=== PATIENT | female | born 1950 | race Caucasian/White ===

== ENCOUNTER → 2018-05-11 | Outpatient (CLI) | payer BC ==
[~2018-05-11] MED LIST: CATHETER FLUSH 10 ML SYR IV PRN; HOLD METFORMIN - RECEIVED CONTRAST 20 ML VIAL IV SCH; IOHEXOL 350 MG/ML 150 ML (OMNIPAQUE 350) VIAL IV ONE; NS 50 ML (IVPB) BAG IV ONE
--- NOTE | 2018-05-11 13:53 | Diagnostic Imaging Report ---
PROCEDURE: CT angiography of the chest with contrast. TECHNIQUE: Multiple contiguous axial images were obtained through the chest after uneventful bolus administration of intravenous contrast. 2D reconstructed CTA MIP acquisitions were also performed. INDICATION: Shortness of air. Chest pain. COMPARISON: None. FINDINGS: There is no evidence of acute pulmonary embolus to the lobar branches of the pulmonary arteries. Evaluation of the segmental and subsegmental branches is suboptimal secondary to motion artifact as well as poor opacification by the contrast bolus. The thoracic aorta shows mild scattered atherosclerotic disease but is otherwise normal in course and caliber. The heart size is within normal limits. There is no large pericardial effusion. No pathologically enlarged or morphologically abnormal adenopathy is seen within the mediastinum, jose, or axilla. A heterogeneous nodule is identified involving the posterior margin of the left thyroid lobe and measures 1.5 x 1.7 cm. Evaluation of the lung comer demonstrates background moderate emphysematous disease with hyperinflation, consistent with underlying air trapping. There is some scarring and atelectasis; however, there is no focal consolidation, large effusion, or pneumothorax. There is mild image degradation of the pulmonary parenchyma secondary to motion artifact but no suspicious pulmonary nodules or masses are identified. The bony structures show no acute abnormality. No lytic or blastic osseous lesions are identified. The included portions of the upper abdomen show a gastric diverticulum superior to the left adrenal gland. IMPRESSION: 1. No evidence of acute pulmonary embolus to the lobar level of the pulmonary arteries. Again, evaluation beyond this is suboptimal secondary to motion artifact and poor opacification by the contrast bolus. 2. Background moderate emphysematous disease but no focal consolidation, large effusion, or pneumothorax. 3. Left adrenal nodule which could be further characterized with dedicated thyroid sonogram on a nonemergent basis. 4. Gastric diverticulum. Dictated by: Dictated on workstation # [id number]
== END ==
LOC: RAD FS 10:57
PROVIDERS: ATTEND Family Medicine
DX: J43.9 Emphysema, unspecified (principal); E27.8 Other specified disorders of adrenal gland; K31.4 Gastric diverticulum
CPT/HCPCS: 71275

== ENCOUNTER 2019-09-16 07:08 | Inpatient (IN) | payer BC, MEDICARE ==
[~2019-09-16] VITALS: Ht 162.6 cm; Wt 72.5 kg
[2019-09-16] VITALS (7 sets, daily range): BP systolic 142–167; BP diastolic 73–86
--- OUTSIDE RECORDS SUMMARY | 2019-09-16 07:15 | XMS REPORT ---
Author Author Bethany EAGLE Organization [facility] Address [address] [address] Care Team Providers Care Flatwork Tier Name Role Phone JIM EAGLE Unavailable PROBLEMS Type Condition ICD9-CM Code [id number] Code Onset Dates Condition S tatus SNOMED Code Problem Acute sinusitis 461.9 Feb, 0 1 6016780 Problem HTN (hypertension) 401.9 Sep, 0 23508026 Problem Hyperlipidemia 272.4 Sep, 0 55 900934 Problem COPD (chronic obstructive pulmonary disease) 496 Sep, 0 75156069 Problem Yeast infection of the skin B37.2 Apr, 0 511140070 Problem Acute bronchitis 466.0 Feb, 0 34565332 Problem Acute bronchitis J20.9 Feb, 0 68167937 Problem Yeast infection of the vagina 112.1 Apr, 15 0 76219885 Problem Yeast infection of the vagina B37.3 Apr, 15 0 40885385 Problem Vertigo R42 Jul, 0 3026172 01 Problem COPD (chronic obstructive pulmonary disease) J44.9 Sep, 0 71718916 Problem HTN (hypertension) I10 Sep, 0 99046774 Problem Simple chronic bronchitis J41.0 Acti ve 02007151 Problem Hyperlipidemia E78.5 Sep, 0 55 070593 Problem Yeast infection of the skin 112.3 Apr, 0 412172714 Problem Hypertension I10 Active 2483255 3 Problem Acute sinusitis J01.90 Feb, 0 1 4060570 Problem Vertigo 780.4 Jul, 0 3145911 01 Problem Tobacco use 305.1 Jul, 0 97322 3000 Problem Tobacco use Z72.0 Jul, 0 29727 3000 Problem Cigarette nicotine dependence, uncomplicated 305.1 Jul, 0 250493506 Problem Cigarette nicotine dependence, uncomplicated F17.2 10 Jul, 0 682118986 Problem Tension-type headache, not intractable, unspecified chronicity pattern G44.209 Active 688260918 ALLERGIES No Known Allergies ENCOUNTERS Encounter Location Date Diagnosis [facility] [address] [place] [address] 08 Sep Simple chronic bronchitis J41.0 ; Hypertension I10 and Tension-type headache, not intractable, unspecified chronicity pattern G44.209 [facility] [address] [place] [address] Sep, Hypertension I10 [facility] [address] [place] [phone] Sep Hypertension I10 [facility] [address] [place] [address], [place] [address] Aug [facility] [address] [place] [address], [place] [address] Aug [facility] [address] [place] [phone] Jul [facility] [address] [place] [address] June, Screening mammogram, encounter for Z12.3 [address] [place] [address] [place] [address], [place] [address] June [facility] [address] [place] [address] Apr SOB (shortness of breath) on exertion R06.02 ; Simple chronic bronchitis J41.0 ; Hypertension I10 and Tension-type headache, not intractable, unspecified chronicity pattern G44.209 [facility] [address] [place] [address] Apr, Hypertension I10 [facility] [address] [place] [phone] Apr Hypertension I10 [facility] [address] [place] [phone] Mar [facility] [address] [place] [phone] Feb [facility] [address] [place] [phone] Feb [facility] [address] [facility] [id number] [place] [address] Jan, [facility] [address] [facility] [id number] [address] [place] [phone] Jan, [facility] [address] [facility] [id number] [address] [place] [phone] Jul, IMMUNIZATIONS No Known Immunizations SOCIAL HISTORY Never Assessed REASON FOR VISIT RAVINDRA murphy RN PLAN OF CARE Activity Details Follow Up prn Reason: VITAL SIGNS Height 64 in 2018-05-11 Weight 162 lbs 2018-05-11 Temperature 97.7 degrees Fahrenheit 2018-05-11 Heart Rate 86 bpm 2018-05-11 Respiratory Rate 16 2018-05-11 BMI 27.8 kg/m2 2018-05-11 Blood pressure systolic 134 mmHg 2018-05-11 Blood pressure diastolic 78 mmHg 2018-05-11 MEDICATIONS Medication Instructions Dosage Frequency Start Date End Date Duration S tatus Albuterol Sulfate HFA (5 MG/ML) 0.5% Inhalation every 6 hrs 2 pu ffs as needed 6h 30 days Active Lorazepam 0.5 MG Orally BID 1 tablet as needed 12h Active Pravastatin Sodium 20 MG Orally Once a day 1 tablet 24h 30 day(s) Active Spiriva Respimat 1.25 mcg/act Inhalation Once a day 2 puffs 24h 30 days Active Albuterol Sulfate (2.5 MG/3ML) 0.083% US E ONE VIAL IN NEBULIZER EVERY 4 HOURS NEEDED FOR WHEEZING 9 Acti ve Losartan Potassium-HCTZ 100-12.5 MG Orally Once a day 1 tablet 24h 30 day(s) Active RESULTS Name Result Date Reference Range CT Scan : Angio Chest w/ Contrast PROCEDURES No Known procedures INSTRUCTIONS MEDICATIONS ADMINISTERED No Known Medications MEDICAL (GENERAL) HISTORY Type Description Date Medical History hypertension Medical History hyperlipidemia
--- OUTSIDE RECORDS SUMMARY | 2019-09-16 07:15 | XMS REPORT ---
Author Author Bethany EAGLE Organization [facility] Address [address] [address] Care Team Providers Care Hadoop Administrator Name Role Phone JIM EAGLE Unavailable PROBLEMS Type Condition ICD9-CM Code [id number] Code Onset Dates Condition S tatus SNOMED Code Problem Acute sinusitis 461.9 Feb, 0 1 0987823 Problem HTN (hypertension) 401.9 Sep, 0 49409305 Problem Hyperlipidemia 272.4 Sep, 0 55 025533 Problem COPD (chronic obstructive pulmonary disease) 496 Sep, 0 67915970 Problem Yeast infection of the skin B37.2 Apr, 0 827324992 Problem Acute bronchitis 466.0 Feb, 0 60930400 Problem Acute bronchitis J20.9 Feb, 0 95215638 Problem Yeast infection of the vagina 112.1 Apr, 15 0 57695312 Problem Yeast infection of the vagina B37.3 Apr, 15 0 07775554 Problem Vertigo R42 Jul, 0 4827709 01 Problem COPD (chronic obstructive pulmonary disease) J44.9 Sep, 0 02666966 Problem HTN (hypertension) I10 Sep, 0 08364871 Problem Simple chronic bronchitis J41.0 Acti ve 09217664 Problem Hyperlipidemia E78.5 Sep, 0 55 677930 Problem Yeast infection of the skin 112.3 Apr, 0 341508702 Problem Hypertension I10 Active 6973915 3 Problem Acute sinusitis J01.90 Feb, 0 1 6866685 Problem Vertigo 780.4 Jul, 0 7219663 01 Problem Tobacco use 305.1 Jul, 0 72007 3000 Problem Tobacco use Z72.0 Jul, 0 20956 3000 Problem Cigarette nicotine dependence, uncomplicated 305.1 Jul, 0 559782663 Problem Cigarette nicotine dependence, uncomplicated F17.2 10 Jul, 0 457768641 Problem Tension-type headache, not intractable, unspecified chronicity pattern G44.209 Active 645133112 ALLERGIES No Information ENCOUNTERS Encounter Location Date Diagnosis [facility] [address] [place] [address] Apr SOB (shortness of breath) on exertion R06.02 ; Simple chronic bronchitis J41.0 ; Hypertension I10 and Tension-type headache, not intractable, unspecified chronicity pattern G44.[address] [address] Apr, Hypertension I10 [place] [address] [place] [address] Apr Hypertension I10 [place] [address] [place] [address] Mar [place] [address] [place] [phone] Feb [place] [address] [place] [address] Feb [facility] [address] [facility] [id number] [address] [place] [address] Jan, [facility] [address] [facility] [id number] [address] [place] [address] Jan, [facility] [address] [facility] [id number] [address] [place] [phone] 11 Jul, 2016 IMMUNIZATIONS No Known Immunizations SOCIAL HISTORY Never Assessed REASON FOR VISIT Lab orders PLAN OF CARE VITAL SIGNS MEDICATIONS Medication Instructions Dosage Frequency Start Date End Date Duration S tatus Spiriva Respimat 1.25 mcg/act Inhalation Once a day 2 puffs 24h 30 days Unknown Albuterol Sulfate HFA (5 MG/ML) 0.5% Inhalation every 6 hrs 2 pu ffs as needed 6h 30 days Unknown Albuterol Sulfate (2.5 MG/3ML) 0.083% US E ONE VIAL IN NEBULIZER EVERY 4 HOURS NEEDED FOR WHEEZING 9 Unkn own RESULTS No Results PROCEDURES No Known procedures INSTRUCTIONS MEDICATIONS ADMINISTERED No Known Medications MEDICAL (GENERAL) HISTORY Type Description Date Medical History hypertension Medical History hyperlipidemia
--- OUTSIDE RECORDS SUMMARY | 2019-09-16 07:15 | XMS REPORT | Continuity of Care Document ---
Demographics x Preferred Language Unknown Marital Status Unknown Presybeterian Affiliation Unknown Race Unknown Ethnic Group Unknown Author Organization Unknown Address Unknown Phone Unavailable Allergies Active Description Code Type Severity Reaction Onset Reported/Identified Relationship to Patient Clinical Status Yes No Allergy Information Available [id number] Drug Allergy Unknown N/A 019 Medications There is no data. Problems Date Dx Coded Attending Type Code Diagnosis Diagnosed By 05/14/2018 SHAGUFTA WOLF, JIM Bañuelos Ot E27.8 OTHER SPECIFIED DISORDERS OF ADRENAL GLA 05/14/2018 JIM EAGLE MD Ot J43.9 EMPHYSEMA, UNSPECIFIED 05/14/2018 JIM EAGLE MD Ot K31.4 GASTRIC DIVERTICULUM 06/09/2018 JIM EAGLE MD Ot E27.8 OTHER SPECIFIED DISORDERS OF ADRENAL GLA 06/09/2018 JIM EAGLE MD Ot J43.9 EMPHYSEMA, UNSPECIFIED 06/09/2018 JIM EAGLE MD Ot K31.4 GASTRIC DIVERTICULUM Procedures There is no data. Results Test Result Range CBC w/MANUAL DIFF - 05/04/18 08:24 WHITE BLOOD CELL COUNT 6.2 Thousand/uL 3 .8-10.8 RED BLOOD CELL COUNT 4.72 Million/uL 3.8 0-5.10 HEMOGLOBIN 14.1 g/dL 11.7-15.5 HEMATOCRIT 41.2 % 35.0-45.0 MCV 87.3 fL 80.0-100.0 MCH 29.9 pg 27.0-33.0 MCHC 34.2 g/dL 32.0-36.0 RDW 12.8 % 11.0-15.0 PLATELET COUNT TNP Thousand/uL NRG ABSOLUTE NEUTROPHILS 3478 cells/uL 1500- 7800 ABSOLUTE MONOCYTES 229 cells/uL 200-950 ABSOLUTE EOSINOPHILS 291 cells/uL 15-500 ABSOLUTE BASOPHILS 56 cells/uL 0-200 NEUTROPHILS 56.1 % NRG LYMPHOCYTES 34.6 % NRG MONOCYTES 3.7 % NRG EOSINOPHILS 4.7 % NRG BASOPHILS 0.9 % NRG ABSOLUTE LYMPHOCYTES 2145 cells/uL 850-3 900 TSH w/ FREE T4 - 03/22/19 07:34 TSH 1.78 mIU/L 0.40-4.50 T4, FREE 1.1 ng/dL 0.8-1.8 LIPID PANEL - 03/22/19 07:34 CHOLESTEROL, TOTAL 220 mg/dL <200 HDL CHOLESTEROL 77 mg/dL >50 TRIGLYCERIDES 103 mg/dL <150 LDL-CHOLESTEROL 122 mg/dL (calc) NRG CHOL/HDLC RATIO 2.9 (calc) <5.0 NON HDL CHOLESTEROL 143 mg/dL (calc) <13 0 CMP - 03/22/19 07:34 GLUCOSE 93 mg/dL 65-99 UREA NITROGEN (BUN) 22 mg/dL 7-25 CREATININE 0.83 mg/dL 0.50-0.99 eGFR NON-AFR. SAMOAN 73 mL/min/1.73m2 > OR = 60 eGFR 85 mL/min/1.73m2 > OR = 60 BUN/CREATININE RATIO NOT APPLICABLE (calc) 6-22 SODIUM 140 mmol/L 135-146 POTASSIUM 4.0 mmol/L 3.5-5.3 CHLORIDE 103 mmol/L 98-110 CARBON DIOXIDE 28 mmol/L 20-32 CALCIUM 9.3 mg/dL 8.6-10.4 PROTEIN, TOTAL 7.1 g/dL 6.1-8.1 ALBUMIN 4.5 g/dL 3.6-5.1 GLOBULIN 2.6 g/dL (calc) 1.9-3.7 ALBUMIN/GLOBULIN RATIO 1.7 (calc) 1.0-2. 5 BILIRUBIN, TOTAL 0.4 mg/dL 0.2-1.2 ALKALINE PHOSPHATASE 79 U/L 33-130 AST 18 U/L 10-35 ALT 22 U/L 6-29 CBC w/MANUAL DIFF - 03/22/19 07:34 WHITE BLOOD CELL COUNT 5.2 Thousand/uL 3 .8-10.8 RED BLOOD CELL COUNT 4.62 Million/uL 3.8 0-5.10 HEMOGLOBIN 13.6 g/dL 11.7-15.5 HEMATOCRIT 41.1 % 35.0-45.0 MCV 89.0 fL 80.0-100.0 MCH 29.4 pg 27.0-33.0 MCHC 33.1 g/dL 32.0-36.0 RDW 13.0 % 11.0-15.0 PLATELET COUNT TNP Thousand/uL NRG ABSOLUTE NEUTROPHILS 2725 cells/uL 1500- 7800 ABSOLUTE MONOCYTES 406 cells/uL 200-950 ABSOLUTE EOSINOPHILS 104 cells/uL 15-500 ABSOLUTE BASOPHILS 0 cells/uL 0-200 NEUTROPHILS 52.4 % NRG LYMPHOCYTES 35.9 % NRG MONOCYTES 7.8 % NRG EOSINOPHILS 2.0 % NRG BASOPHILS 0 % NRG ABSOLUTE BAND NEUTROPHILS 99 cells/uL 0- 750 ABSOLUTE LYMPHOCYTES 1867 cells/uL 850-3 900 BAND NEUTROPHILS 1.9 % NRG PLATELET ESTIMATION ADEQUATE CBC MORPHOLOGY NORMAL COMMENT(S) NRG Encounters ACCT No. Visit Date/Time Discharge Status Pt. Type Provider Facility Loc./Unit Complaint [id number] 03/22/2019 07:30:00 03/22/2019 23:59: 59 CLS Outpatient [facility] [id number] 03/22/2019 07:30:00 Document Registration [id number] 05/04/2018 09:00:00 Document Registration [id number] 05/11/2018 10:57:00 019 23:59:59 CLS Outpatient SHAGUFTA WOLF, JIM Castillo [facility] RAD FS SOB ON EXERTION
[2019-09-16 07:51] LABS: HEMATOCRIT 39 % (35-52); HEMOGLOBIN 13.2 G/DL (11.5-16.0); MEAN CORPUSCULAR HEMOGLOBIN 30 PG (25-34); MEAN CORPUSCULAR VOLUME 86 FL (80-99); WHITE BLOOD COUNT 10.1 10^3/uL (4.3-11.0)
[2019-09-16 07:52] LABS: BASOPHILS % (AUTO) 0 % (0-10); EOSINOPHILS # (AUTO) 0.1 10^3/uL (0.0-0.3); EOSINOPHILS % (AUTO) 1 % (0-10); LYMPHOCYTES # (AUTO) 1.4 X 10^3 (1.0-4.0); LYMPHOCYTES % (AUTO) 14 % (12-44); MEAN CORPUSCULAR HGB CONC 34 G/DL (32-36); MEAN PLATELET VOLUME 10.8 FL (7.4-10.4); MONOCYTES # (AUTO) 0.4 X 10^3 (0.0-1.0); MONOCYTES % (AUTO) 4 % (0-12); NEUTROPHILS # (AUTO) 8.1 X 10^3 (1.8-7.8); NEUTROPHILS % (AUTO) 70 % (42-75); PLATELET COUNT 308 10^3/uL (130-400); RED CELL DISTRIBUTION WIDTH 12.6 % (10.0-14.5)
--- NOTE | 2019-09-16 07:57 | ED Abdominal Pain ---
General Chief Complaint: Abdominal/GI Problems Stated Complaint: ABD/BACK PAIN Nursing Triage Note: Patient states she has not had a bowel movement since the beginning of the week, also states she has had a sinus infection that has progressed to a cough. She reports she has COPD and wears oxygen at home, mainly at night. She reports bilateral upper abdominal/lower rib cage and lower back pain. 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 pt presents complaining of upper abdominal pain radiating to the back that started last night she says she started with a URI / sinus congestion symptoms roughly a week ago it moved into her chest although she's had little in the way of coughing has had occasional green or yellow sputum she feels she has pneumonia she's not sure about fever she is afebrile here for us last night she developed this epigastric and midabdominal pain radiating through to the back she did have nausea and vomited 4 still has her gallbladder has been constipated she denies urinary symptoms CT scan shows negative chest no PE abdomen scan shows fluid-filled distended loops of small bowel concerning for small bowel obstruction no definite transition point seen This was discussed with the hospitalist in [place] covering for her physician's service Dr. Leung who agrees to accept the patient in transfer she has requested that we run a COVID-19 swab and start an NG tube Allergies and Home Medications Allergies Coded Allergies: No Known Drug Allergies (Unverified , 09/16/19) Patient Home Medication List Home Medication List Reviewed: Yes Review of Systems Review of Systems Constitutional: no symptoms reported EENTM: Nose Congestion Respiratory: Cough, Other (has COPD/asthma is on O2 no apparent increase in resp difficulty) Cardiovascular: Other (can't exclude lower chest pain) Gastrointestinal: Abdominal Pain, Constipated, Nausea, Vomiting Genitourinary: No Symptoms Reported Musculoskeletal: no symptoms reported Skin: no symptoms reported Psychiatric/Neurological: No Symptoms Reported Endocrine: No Symptoms Reported Hematologic/Lymphatic: No Symptoms Reported Past Csrldeg-Iqgptc-Lyoufy Hx Patient Social History Alcohol Use: Denies Use Recreational Drug Use: No Smoking Status: Former Smoker Type Used: Cigarettes Former Smoker, Quit: Feb 23, 2017 2nd Hand Smoke Exposure: No Recent Foreign Travel: No Contact w/Someone Who Travel: No Recent Infectious Disease Expo: No Recent Hopitalizations: No Physical Abuse: No Sexual Abuse: No Mistreated: No Fear: No Seasonal Allergies Seasonal Allergies: No Past Medical History Surgeries: No Respiratory: Yes COPD Cardiac: No Neurological: No Genitourinary: No Gastrointestinal: No Musculoskeletal: No Endocrine: No HEENT: No Cancer: No Psychosocial: No Integumentary: No Physical Exam Vital Signs Vital Signs - First Documented 09/16/19 07:22 Temp 36.9 Pulse 89 Resp 20 B/P (MAP) 152/107 (122) Pulse Ox 94 O2 Delivery Nasal Cannula O2 Flow Rate 3.00 Capillary Refill : Less Than 3 Seconds Height/Weight/BMI Height: '" Weight: lbs. oz. kg; 27.00 BMI Method: General Appearance: WD/WN, no apparent distress, other (pt does not appear to be indistress either from pain or from resp difficulty) Cardiovascular: regular rate, rhythm Gastrointestinal: normal bowel sounds, non tender, soft Extremities: normal range of motion, no pedal edema; No calf tenderness Back: normal inspection, no CVA tenderness Progress/Results/Core Measures Results/Orders Lab Results Laboratory Tests Test 09/16/19 07:15 09/16/19 07:35 Range/Units Urine Color YELLOW Urine Clarity CLEAR Urine pH 6.0 5-9 Urine Specific [place] 1.025 H 1.016-1.022 Urine Protein TRACE H NEGATIVE Urine Glucose (UA) NEGATIVE NEGATIVE Urine Ketones NEGATIVE NEGATIVE Urine Nitrite NEGATIVE NEGATIVE Urine Bilirubin NEGATIVE NEGATIVE Urine Urobilinogen 0.2 < = 1.0 MG/DL Urine Leukocyte Esterase NEGATIVE NEGATIVE Urine RBC (Auto) NEGATIVE NEGATIVE Urine RBC NONE /HPF Urine WBC NONE /HPF Urine Squamous Epithelial Cells 10-25 H /HPF Urine Crystals NONE /LPF Urine Bacteria FEW H /HPF Urine Casts PRESENT /LPF Urine Hyaline Casts 0-2 H /LPF Urine Mucus NEGATIVE /LPF Urine Culture Indicated NO White Blood Count 10.1 4.3-11.0 10^3/uL Red Blood Count 4.46 4.35-5.85 10^6/uL Hemoglobin 13.2 11.5-16.0 G/DL Hematocrit 39 35-52 % Mean Corpuscular Volume 86 80-99 FL Mean Corpuscular Hemoglobin 30 25-34 PG Mean Corpuscular Hemoglobin Concent 34 32-36 G/DL Red Cell Distribution Width 12.6 10.0-14.5 % Platelet Count 308 130-400 10^3/uL Mean Platelet Volume 10.8 H 7.4-10.4 FL Neutrophils (%) (Auto) 70 42-75 % Lymphocytes (%) (Auto) 14 12-44 % Monocytes (%) (Auto) 4 0-12 % Eosinophils (%) (Auto) 1 0-10 % Basophils (%) (Auto) 0 0-10 % Neutrophils # (Auto) 8.1 H 1.8-7.8 X 10^3 Lymphocytes # (Auto) 1.4 1.0-4.0 X 10^3 Monocytes # (Auto) 0.4 0.0-1.0 X 10^3 Eosinophils # (Auto) 0.1 0.0-0.3 10^3/uL Basophils # (Auto) 0.0 0.0-0.1 10^3/uL D-Dimer 1.38 H 0.00-0.49 UG/ML Sodium Level 130 L 135-145 MMOL/L Potassium Level 4.5 3.6-5.0 MMOL/L Chloride Level 92 L 98-107 MMOL/L Carbon Dioxide Level 26 21-32 MMOL/L Anion Gap 12 5-14 MMOL/L Blood Urea Nitrogen 15 7-18 MG/DL Creatinine 0.94 0.60-1.30 MG/DL Estimat Glomerular Filtration Rate 60 BUN/Creatinine Ratio 16 Glucose Level 143 H 70-105 MG/DL Calcium Level 10.4 H 8.5-10.1 MG/DL Corrected Calcium 10.2 H 8.5-10.1 MG/DL Total Bilirubin 0.2 0.1-1.0 MG/DL Aspartate Amino Transf (AST/SGOT) 18 5-34 U/L Alanine Aminotransferase (ALT/SGPT) 23 0-55 U/L Alkaline Phosphatase 97 40-136 U/L Troponin I < 0.30 <0.30 NG/ML Total Protein 7.7 6.4-8.2 GM/DL Albumin 4.2 3.2-4.5 GM/DL Lipase 29 8-78 U/L My Orders Orders - JOJO BECKHAM MD Ua Culture If Indicated (09/16/19 07:13) Chest 1 View Ap/Pa Only (09/16/19 07:30) Ekg Tracing (09/16/19 07:40) Cbc With Automated Diff (09/16/19 07:40) Comprehensive Metabolic Panel (09/16/19 07:40) Lipase (09/16/19 07:40) Troponin I Fs (09/16/19 07:40) Iv Heplock-Insert (Order) (09/16/19 07:40) Fentanyl Injection (Sublimaze Injection (09/16/19 08:00) Monitor-Rhythm Ecg Trace Only (09/16/19 07:49) Fibrin Degradation Products (09/16/19 07:50) Ct Madhavi Chest/Noang Abd-Pelv W (09/16/19 ) Iohexol Injection (Omnipaque 350 Mg/Ml 1 (09/16/19 09:15) Received Contrast (Hold Metformin- Contr (09/16/19 09:15) Sodium Chloride Flush (Catheter Flush Sy (09/16/19 09:15) Ns (Ivpb) (Sodium Chloride 0.9% Ivpb Bag (09/16/19 09:15) Fentanyl Injection (Sublimaze Injection (09/16/19 09:45) Medications Given in ED Current Medications Medications Dose Ordered Sig/Sharyn Route Start Time Stop Time Status Last Admin Dose Admin Fentanyl Citrate 50 mcg ONCE ONCE IVP 09/16/19 08:00 09/16/19 08:01 DC 09/16/19 07:53 50 MCG Fentanyl Citrate 50 mcg ONCE ONCE IVP 09/16/19 09:45 09/16/19 09:46 DC 09/16/19 09:41 50 MCG Iohexol 125 ml ONCE ONCE IV 09/16/19 09:15 09/16/19 09:16 DC 09/16/19 09:37 125 ML Sodium Chloride 10 ml NEEDED PRN IV 09/16/19 09:15 09/16/19 09:37 10 ML Sodium Chloride 100 ml ONCE ONCE IV 09/16/19 09:15 09/16/19 09:16 DC 09/16/19 09:37 100 ML Vital Signs/I&O 09/16/19 07:22 Temp 36.9 Pulse 89 Resp 20 B/P (MAP) 152/107 (122) Pulse Ox 94 O2 Delivery Nasal Cannula O2 Flow Rate 3.00 Blood Pressure Mean: 122 Progress Progress Note : Progress Note Chest x-ray has been read by radiology as normal All labs including troponin lipase CBC CMP and UA are normal except elevated d- dimer CT chest - neg CT scan shows negative chest no PE abdomen scan shows fluid-filled distended loops of small bowel concerning for small bowel obstruction no definite transition point seen This was discussed with the hospitalist in [place] covering for her physician's service Dr. Leung who agrees to accept the patient in transfer she has requested that we run a COVID-19 swab and start an NG tube Comment EKG shows a sinus rhythm at 79 relatively low voltage no acute ST changes Departure Communication (Admissions) Time/Spoke to Admitting Phy: 10:36 Impression Primary Impression: Small bowel obstruction Disposition: ADMITTED INPATIENT Condition: Stable Admissions Decision to Admit Reason: Admit from ER (General) Decision to Admit/Date: Sep 16, 2019 Time/Decision to Admit Time: 10:38 Transfer Transfer Reason: Exceeds level of care Time Spoke to Accepting Phy: 10:38 Transfer Progress Notes pt to have NG placed and COVID 19 swab taken Method of Transfer: EMS Departure-Patient Inst. Referrals: JIM EAGLE MD (PCP/Family) Primary Care Physician JOJO BECKHAM MD Sep 16, 2019 07:57
[2019-09-16] MEDS ORDERED: fentaNYL INJECTION 100 MCG/2 ML AMP IVP ONE ×4 (08:00→21:45)
--- NOTE | 2019-09-16 08:13 | Diagnostic Imaging Report ---
Indication: Lower respiratory infection Portable chest 7:43 AM Heart size and pulmonary vascularity are normal. Lungs are clear. There are no effusions or pneumothoraces. IMPRESSION: No acute abnormalities in the chest Dictated by: Dictated on workstation # [id number]
[2019-09-16 08:15] LABS: BACTERIA,URINE FEW /HPF; BILIRUBIN,URINE NEGATIVE (NEGATIVE); CLARITY,URINE CLEAR; COLOR,URINE YELLOW; GLUCOSE, URINE (UA) NEGATIVE (NEGATIVE); HYALINE CASTS, URINE 0-2 /LPF; KETONES,URINE NEGATIVE (NEGATIVE); LEUKOCYTE ESTERASE ,URINE NEGATIVE (NEGATIVE); NITRITE,URINE NEGATIVE (NEGATIVE); PROTEIN,URINE TRACE (NEGATIVE)
[2019-09-16 08:16] LABS: ALANINE AMINOTRANSFERASE 23 U/L (0-55); ALBUMIN 4.2 GM/DL (3.2-4.5); ALKALINE PHOSPHATASE 97 U/L (40-136); BILIRUBIN,TOTAL 0.2 MG/DL (0.1-1.0); BUN/CREATININE RATIO 16; CALCIUM 10.4 MG/DL (8.5-10.1); CARBON DIOXIDE 26 MMOL/L (21-32); CHLORIDE 92 MMOL/L (98-107); CREATININE SERUM 0.94 MG/DL (0.60-1.30); GFR ESTIMATED 60; GLUCOSE 143 MG/DL (70-105); LIPASE 29 U/L (8-78); POTASSIUM 4.5 MMOL/L (3.6-5.0); SODIUM 130 MMOL/L (135-145); TOTAL PROTEIN 7.7 GM/DL (6.4-8.2)
[2019-09-16] MEDS ORDERED: IOHEXOL 350 MG/ML 150 ML (OMNIPAQUE 350) VIAL IV ONE (09:15)
[2019-09-16] MEDS ORDERED: HOLD METFORMIN - RECEIVED CONTRAST 20 ML VIAL IV SCH (09:15)
[2019-09-16] MEDS ORDERED: NS 100 ML (IVPB) BAG IV ONE (09:15)
[2019-09-16] MEDS: CATHETER FLUSH 10 ML SYR IV PRN ×2 (09:37→13:43)
--- NOTE | 2019-09-16 10:05 | Diagnostic Imaging Report ---
CTA chest, abdomen and pelvis Thin axial sections through the chest, abdomen and pelvis are obtained following intravenous contrast bolus. Multiplanar MIP images were reconstructed and reviewed. All CT scans use one or more of the following dose optimizing techniques: automated exposure control, MA and/or KvP adjustment based on a patient size and exam type, or iterative reconstruction. INDICATION: Chest pain. Cough. Elevated d-dimer. Evaluate for pulmonary embolism. Abdominal pain. COMPARISON: 05/11/2018. CTA chest: The heart size is within normal limits. No pericardial effusion is present. No evidence of pulmonary embolism to the subsegmental pulmonary arteries. A nodule is seen extending from the inferior pole of the left lobe of the thyroid measuring 1.7 x 1.4 cm. This extends into the mediastinum. There is no mediastinal, hilar, or axillary lymphadenopathy. Centrilobular emphysema is seen throughout the lungs. Subsegmental atelectasis is seen in the lung bases. Mild bronchiectasis is present. No suspicious pulmonary nodules or masses. No evidence of pulmonary infarct. There are no focal areas of consolidation. No pneumothoraces are present. No central endobronchial obstructing lesions are identified. There are no pleural effusions. The osseous structures demonstrate degenerative changes without focal lytic or blastic lesions. A small hiatal hernia is present. CT abdomen: The liver, spleen, pancreas, and adrenal glands have a normal appearance. Simple cortical cysts are seen in the kidneys bilaterally which do not require further follow-up. There is no pathologically enlarged mesenteric or retroperitoneal adenopathy. Fluid-filled distended loops of small bowel are seen throughout the abdomen. No definite transition point is visualized. A small amount of stool seen in the colon. A normal appendix is visualized in the right lower quadrant. Diverticuli are seen throughout the sigmoid and descending colon without evidence of acute diverticulitis. A small amount of free fluid is seen in the pelvis. No free air. The osseous structures are age-appropriate. There is calcified aortic and iliac atherosclerotic plaque without evidence of aneurysm. Ureters and bladder are grossly normal. There is no free air, loculated collection, or adenopathy in the pelvis. IMPRESSION: 1. No evidence of pulmonary embolism. 2. Fluid-filled distended loops of small bowel in the abdomen, concerning for small bowel obstruction. No definite transition point is seen. A small amount of free fluid is seen in the pelvis. No free air. 3. Nodule extending inferiorly from the left lobe of the thyroid within the mediastinum. This measures 1.7 x 1.4 cm. Recommend correlation with TSH. Given its location within the mediastinum ultrasound is felt to be unhelpful. Further evaluation with iodine-131 nuclear medicine study may be considered. 4. Small hiatal hernia. Dictated by: Dictated on workstation # [id number]
[2019-09-16] MEDS ORDERED: LORazepam INJ 2 MG/ML (ATIVAN) VIAL IVP PRN ×2 (11:30→14:45)
[2019-09-16] MEDS: fentaNYL INJECTION 100 MCG/2 ML AMP IVP PRN ×4 (13:43→19:19)
[2019-09-16] MEDS: NS IV 1000 ML 1,000 ML IV SCH (13:43)
--- OUTSIDE RECORDS SUMMARY | 2019-09-16 14:16 | XMS REPORT | Continuity of Care Document ---
Demographics x Preferred Language Unknown Marital Status Unknown Confucianist Affiliation Unknown Race Unknown Ethnic Group Unknown Author Organization Unknown Address Unknown Phone Unavailable Allergies Active Description Code Type Severity Reaction Onset Reported/Identified Relationship to Patient Clinical Status Yes No Allergy Information Available [id number] Drug Allergy Unknown N/A 019 Medications There [...] 7-25 CREATININE 0.83 mg/dL 0.50-0.99 eGFR NON-AFR. MARTINIQUAIS 73 mL/min/1.73m2 > OR = 60 eGFR [...] ESTIMATION ADEQUATE CBC MORPHOLOGY NORMAL COMMENT(S) NRG Complete urinalysis with reflex to cultu re - 09/16/19 07:15 Urine color determination YELLOW NRG Urine clarity determination CLEAR NR G Urine pH measurement by test strip 6.0 5-9 Specific gravity of urine by test strip 1.025 1.016-1.022 Urine protein assay by test strip, semi-quantitative TRACE NEGATIVE Urine glucose detection by automated test strip NE GATIVE NEGATIVE Erythrocytes detection in urine sediment by light micr oscopy NEGATIVE NEGATIVE Urine ketones detection by automated test strip NE GATIVE NEGATIVE Urine nitrite detection by test strip NEGATIVE NEGATIVE Urine total bilirubin detection by test strip NEGA TIVE NEGATIVE Urine urobilinogen measurement by automated test strip (mass/volume) 0.2 mg/dL < = 1.0 Urine leukocyte esterase detection by dipstick NEG ATIVE NEGATIVE Automated urine sediment erythrocyte cou nt by microscopy (number/high power field) NONE NRG Automated urine sediment leukocyte count by microscopy (number/high power field) NONE NRG Bacteria detection in urine sediment by light microsco py FEW NRG Squamous epithelial cells detection in u rine sediment by light microscopy 10-25 NRG Crystals detection in urine sediment by light microsco py NONE NRG Casts detection in urine sediment by light microscopy PRESENT NRG Mucus detection in urine sediment by light microscopy NEGATIVE NRG Complete urinalysis with reflex to culture NO NRG Hyaline casts detection in urine sediment by light mario roscopy 0-2 NRG Complete blood count (CBC) with automate d white blood cell (WBC) differential - 09/16/19 07:35 Blood leukocytes automated count (number/volume) 10.1 10*3/uL 4.3-11.0 Blood erythrocytes automated count (number/volume) 4.46 10*6/uL 4.35-5.85 Venous blood hemoglobin measurement (mass/volume) 13.2 g/dL 11.5-16.0 Blood hematocrit (volume fraction) 39 % 35-52 Automated erythrocyte mean corpuscular volume 86 [ foz_us] 80-99 Automated erythrocyte mean corpuscular h emoglobin (mass per erythrocyte) 30 pg 25-34 Automated erythrocyte mean corpuscular h emoglobin concentration measurement (mass/volume) 34 g/dL 32-36 Automated erythrocyte distribution width ratio 12. 6 % 10.0- 14.5 Automated blood platelet count (count/volume) 308 10*3/uL 130-400 Automated blood platelet mean volume measurement 10.8 [foz_us] 7.4-10.4 Automated blood neutrophils/100 leukocytes 70 % 42-75 Automated blood lymphocytes/100 leukocytes 14 % 12-44 Blood monocytes/100 leukocytes 4 % 0-12 Automated blood eosinophils/100 leukocytes 1 % 0-10 Automated blood basophils/100 leukocytes 0 % 0-10 Blood neutrophils automated count (number/volume) 8.1 10*3 1.8-7.8 Blood lymphocytes automated count (number/volume) 1.4 10*3 1.0-4.0 Blood monocytes automated count (number/volume) 0. 4 10*3 0.0-1.0 Automated eosinophil count 0.1 10*3/uL 0 .0-0.3 Automated blood basophil count (count/volume) 0.0 10*3/uL 0.0-0.1 Fibrin D-dimer FEU measurement in platel et poor plasma (mass/volume) - 09/16/19 07:35 Fibrin D-dimer FEU measurement in platelet poor plasma (mass/volume) 1.38 ug/mL 0.00-0.49 Comprehensive metabolic panel - 09/16/19 07:35 Serum or plasma sodium measurement (moles/volume) 130 mmol/L 135-145 Serum or plasma potassium measurement (moles/volume) 4.5 mmol/L 3.6-5.0 Serum or plasma chloride measurement (moles/volume) 92 mmol/L 98-107 Carbon dioxide 26 mmol/L 21-32 Serum or plasma anion gap determination (moles/volume) 12 mmol/L 5-14 Serum or plasma urea nitrogen measurement (mass/volume ) 15 mg/dL 7-18 Serum or plasma creatinine measurement (mass/volume) 0.94 mg/dL 0.60-1.30 Serum or plasma urea nitrogen/creatinine mass ratio 16 NRG Serum or plasma creatinine measurement w ith calculation of estimated glomerular filtration rate 60 NRG Serum or plasma glucose measurement (mass/volume) 143 mg/dL 70-105 Serum or plasma calcium measurement (mass/volume) 10.4 mg/dL 8.5-10.1 Serum or plasma total bilirubin measurement (mass/volu me) 0.2 mg/dL 0.1-1.0 Serum or plasma alkaline phosphatase sudeep surement (enzymatic activity/volume) 97 U/L 40-136 Serum or plasma aspartate aminotransfera se measurement (enzymatic activity/volume) 18 U/L 5-34 Serum or plasma alanine aminotransferase measurement (enzymatic activity/volume) 23 U/L 0-55 Serum or plasma protein measurement (mass/volume) 7.7 g/dL 6.4-8.2 Serum or plasma albumin measurement (mass/volume) 4.2 g/dL 3.2-4.5 CALCIUM CORRECTED 10.2 mg/dL 8.5-10.1 TROPONIN I FS - 09/16/19 07:35 TROPONIN I FS < 0.30 <0.30 Lipase - 09/16/19 07:35 Lipase 29 U/L 8-78 Encounters ACCT No. Visit Date/Time Discharge Status Pt. Type Provider Facility Loc./Unit Complaint [id number] 03/22/2019 07:30:00 03/22/2019 23:59: 59 [facility] [id number] 03/22/2019 07:30:00 Document Registration [id number] 05/04/2018 09:00:00 Document Registration [id number] 05/11/2018 10:57:00 019 23:59:59 CLS Outpatient SHAGUFTA WOLF, JIM Castillo [facility] RAD FS SOB ON EXERTION [id number] 09/16/2019 07:52:00 Document Registration
[2019-09-16] MEDS ORDERED: RT-ALBUTEROL INHALER HFA (VENTOLIN HFA) 18 GM IH PRN (16:30)
[2019-09-16] MEDS: ENOXAPARIN 40 MG/0.4 ML (LOVENOX) SYR SC SCH (17:34)
[2019-09-16] MEDS ORDERED: morphine INJ 4 MG/ML 1 ML (VIAL/SYRINGE) ONE (19:59)
[2019-09-16] MEDS ORDERED: ONDANSETRON 4 MG/2 ML (SDV) Z0FRAN IVP PRN ×2 (20:15→21:45)
--- NOTE | 2019-09-16 20:24 | Consultation - Surgery ---
History of Present Illness History of Present Illness Patient Consulted On(ravi/time) 09/16/19 20:17 Time Seen by Provider: 19:58 History of Present Illness Surgery asked to consult regarding PSBO. HPI per ED: Patient states she has not had a bowel movement since the beginning of the week, also states she has had a sinus infection that has progressed to a cough. She reports she has COPD and wears oxygen at home, mainly at night. She reports bilateral upper abdominal/lower rib cage and lower back pain. 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 Has had occasional green or yellow sputum she feels she has pneumonia, she's not sure about fever she is afebrile here for us last night she developed this epigastric and midabdominal pain radiating through to the back, she did have nausea and vomited 4 still has her gallbladder has been constipated she denies urinary symptoms CT scan shows negative chest no PE abdomen scan shows fluid-filled distended loops of small bowel concerning for small bowel obstruction no definite trans ition point seen This was discussed with the hospitalist in [place] covering for her physician's service Dr. Leung who agrees to accept the patient in transfer she has requested that we run a COVID-19 swab and start an NG tube When I spoke with the pt this evening she could barely talk to me and stated the pain was so bad she couldn't even concentrate to talk. Rated it as more than 10 out of 10, "a 13" and all over the abdomen. Described a sharp, stabbing and crampy pain. Fentanyl was not helping with the pain. Associated with N/V. She states she has never had any stomach pain like this before and has never had abdominal surgery. She thinks her last colonoscopy was more than 10 yrs ago. Allergies and Home Medications Allergies Coded Allergies: No Known Drug Allergies (Unverified , 09/16/19) Patient Home Medication List Home Medication List Reviewed: Yes Past Kaqhtle-Hvkyfg-Udcjrb Hx Patient Social History Alcohol Use: Denies Use Recreational Drug Use: No Smoking Status: Former Smoker (pt smoked at least a pack per day from [age]yo and then for 10 yrs just under 1/2 ppd, quit 2 years ago) Former Smoker, Quit: Feb 23, 2017 Type Used: Cigarettes 2nd Hand Smoke Exposure: No Recent Foreign Travel: No Contact w/Someone Who Travel: No Recent Infectious Disease Expo: No Recent Hopitalizations: No Immunizations Up To Date Date of Pneumonia Vaccine: Sep 15, 2017 Seasonal Allergies Seasonal Allergies: No Surgeries History of Surgeries: No Respiratory History of Respiratory Disorde: Yes Respiratory Disorders: Asthma, COPD Cardiovascular History of Cardiac Disorders: Yes Cardiac Disorders: Hypertension Neurological History of Neurological Disord: No Reproductive System : No Genitourinary History of Genitourinary Disor: No Gastrointestinal History of Gastrointestinal Di: No Musculoskeletal History of Musculoskeletal Dis: No Endocrine History of Endocrine Disorders: No HEENT History of HEENT Disorders: No Cancer History of Cancer: No Psychosocial History of Psychiatric Problem: No Integumentary History of Skin or Integumenta: No Family Medical History Significant Family History: Asthma, Cancer (Mother had a mass that perforated and she a few months ago), Hypertension (mother) Review of Systems-General Constitutional: fever, malaise, weakness EENTM: No blurred vision, No double vision, No mouth pain, No mouth swelling, No epistaxis Respiratory: No cough, No hemoptysis; short of breath (because of her asthma an d COPD, uses inhaler as needed) Cardiovascular: No chest pain, No edema, No palpitations Gastrointestinal: abdominal pain; No jaundice; nausea, vomiting Genitourinary: No dysuria, No frequency, No hematuria Musculoskeletal: joint pain, joint swelling, muscle stiffness Skin: No change in color, No change in hair/nails Psychiatric/Neurological: Denies Anxiety, Denies Depressed, Denies Seizure, Denies Tremors Other pt denies any hx of abnormal bleeding or bruising Physical Exam-General Problems Physical Exam Vital Signs Vital Signs - First Documented 09/16/19 07:22 Temp 36.9 Pulse 89 Resp 20 B/P (MAP) 152/107 (122) Pulse Ox 94 O2 Delivery Nasal Cannula O2 Flow Rate 3.00 Capillary Refill : Less Than 3 Seconds General Appearance: severe distress, obese Eyes: Bilateral Eye PERRL, Bilateral Eye EOMI HEENT: No scleral icterus (R), No scleral icterus (L); other (mucous membranes dry) Neck: non-tender, supple Respiratory: chest non-tender, lungs clear, normal breath sounds, no respiratory distress, no accessory muscle use Cardiovascular: regular rate, rhythm, no murmur Gastrointestinal: no organomegaly, no pulsatile mass; No distended; guarding (voluntary), tenderness (diffusely) Back: no CVA tenderness, no vertebral tenderness Extremities: non-tender, no pedal edema, no calf tenderness, normal capillary refill Neurologic/Psychiatric: content architect II-XII nml as tested, no motor/sensory deficits, alert, oriented x 3, other (pt is anxious because the pain is so severe) Skin: normal color, warm/dry Lymphatic: no adenopathy (neck, axilla or groin) Data Review Labs Laboratory Tests 09/16/19 07:15: Urine Color YELLOW, Urine Clarity CLEAR, Urine pH 6.0, Urine Specific [place] 1.025H, Urine Protein TRACEH, Urine Glucose (UA) NEGATIVE, Urine Ketones NEGATIVE, Urine Nitrite NEGATIVE, Urine Bilirubin NEGATIVE, Urine Urobilinogen 0.2, Urine Leukocyte Esterase NEGATIVE, Urine RBC (Auto) NEGATIVE, Urine RBC NONE, Urine WBC NONE, Urine Squamous Epithelial Cells 10-25H, Urine Crystals NONE, Urine Bacteria FEWH, Urine Casts PRESENT, Urine Hyaline Casts 0-2H, Urine Mucus NEGATIVE, Urine Culture Indicated NO 09/16/19 07:35: White Blood Count 10.1, Red Blood Count 4.46, Hemoglobin 13.2, Hematocrit 39, Mean Corpuscular Volume 86, Mean Corpuscular Hemoglobin 30, Mean Corpuscular Hemoglobin Concent 34, Red Cell Distribution Width 12.6, Platelet Count 308, Mean Platelet Volume 10.8H, Neutrophils (%) (Auto) 70, Lymphocytes (%) (Auto) 14, Monocytes (%) (Auto) 4, Eosinophils (%) (Auto) 1, Basophils (%) (Auto) 0, Neutrophils # (Auto) 8.1H, Lymphocytes # (Auto) 1.4, Monocytes # (Auto) 0.4, Eosinophils # (Auto) 0.1, Basophils # (Auto) 0.0, D-Dimer 1.38H, Sodium Level 130L, Potassium Level 4.5, Chloride Level 92L, Carbon Dioxide Level 26, Anion Gap 12, Blood Urea Nitrogen 15, Creatinine 0.94, Estimat Glomerular Filtration Rate 60, BUN/Creatinine Ratio 16, Glucose Level 143H, Calcium Level 10.4H, Corrected Calcium 10.2H, Total Bilirubin 0.2, Aspartate Amino Transf (AST/SGOT) 18, Alanine Aminotransferase (ALT/SGPT) 23, Alkaline Phosphatase 97, Troponin I < 0.30, Total Protein 7.7, Albumin 4.2, Lipase 29 09/16/19 11:00: Radiology CT ASHLY CHEST/NOANG ABD-PELV W CTA chest, abdomen and pelvis Thin axial sections through the chest, abdomen and pelvis are obtained following intravenous contrast bolus. Multiplanar MIP images were reconstructed and reviewed. All CT scans use one or more of the following dose optimizing techniques: automated exposure control, MA and/or KvP adjustment based on a patient size and exam type, or iterative reconstruction. INDICATION: Chest pain. Cough. Elevated d-dimer. Evaluate for pulmonary embolism. Abdominal pain. COMPARISON: 05/11/2018. CTA chest: The heart size is within normal limits. No pericardial effusion is present. No evidence of pulmonary embolism to the subsegmental pulmonary arteries. A nodule is seen extending from the inferior pole of the left lobe of the thyroid measuring 1.7 x 1.4 cm. This extends into the mediastinum. There is no mediastinal, hilar, or axillary lymphadenopathy. Centrilobular emphysema is seen throughout the lungs. Subsegmental atelectasis is seen in the lung bases. Mild bronchiectasis is present. No suspicious pulmonary nodules or masses. No evidence of pulmonary infarct. There are no focal areas of consolidation. No pneumothoraces are present. No central endobronchial obstructing lesions are identified. There are no pleural effusions. The osseous structures demonstrate degenerative changes without focal lytic or blastic lesions. A small hiatal hernia is present. CT abdomen: The liver, spleen, pancreas, and adrenal glands have a normal appearance. Simple cortical cysts are seen in the kidneys bilaterally which do not require further follow-up. There is no pathologically enlarged mesenteric or retroperitoneal adenopathy. Fluid-filled distended loops of small bowel are seen throughout the abdomen. No definite transition point is visualized. A small amount of stool seen in the colon. A normal appendix is visualized in the right lower quadrant. Diverticuli are seen throughout the sigmoid and descending colon without evidence of acute diverticulitis. A small amount of free fluid is seen in the pelvis. No free air. The osseous structures are age-appropriate. There is calcified aortic and iliac atherosclerotic plaque without evidence of aneurysm. Ureters and bladder are grossly normal. There is no free air, loculated collection, or adenopathy in the pelvis. IMPRESSION: 1. No evidence of pulmonary embolism. 2. Fluid-filled distended loops of small bowel in the abdomen, concerning for small bowel obstruction. No definite transition point is seen. A small amount of free fluid is seen in the pelvis. No free air. 3. Nodule extending inferiorly from the left lobe of the thyroid within the mediastinum. This measures 1.7 x 1.4 cm. Recommend correlation with TSH. Given its location within the mediastinum ultrasound is felt to be unhelpful. Further evaluation with iodine-131 nuclear medicine study may be considered. 4. Small hiatal hernia. Dictated by: Dictated on workstation # [id number] Dict: 09/16/19 0944 Trans: 09/16/19 1016 [facility] [id number] Interpreted by: JOE LEES DO Electronically signed by: JOE LEES DO 09/16/19 1016 Assessment/Plan Assessment/Plan Assessment/Plan PSBO COPD, Asthma Diffuse Abd pain Hyponatremia and Hypochloremia Pt is admitted for PSBO and was made NPO with NGT placed; she is getting IV fluids, pain control and anti-emetics. I had the nurse give her morphine and we are waiting to see if this helps her pain. She does not have elevated WBC, but does have some minimal free fluid in the pelvis. She has not had abdominal surgery before so probably does not have any intra-abdominal adhesions. I did talk to her about small bowel obstructions usually resolving on their own, but if we can't control her pain then she may need to go to the OR for possible Exploratory Laparotomy with possible bowel resection. Risks and complications discussed; not limited to pain, bleeding, infection, scar and need for further procedure. She said "whatever you have to do to stop this pain". I will re-examine pt's abdomen and reassess her, may be able to make it through the night and recheck labs and abdominal exam in the am or she may need surgery tonight. She is getting IV fluid which hopefully will help her electrolyte imbalance. Clinical Quality Measures DVT/VTE Risk/Contraindication: Risk Factor Score Per Nursin RFS Level Per Nursing on Admit: 4+=Very High MK AMADOR DO Sep 16, 2019 20:24
[2019-09-16] MEDS: RT-ALBUTEROL INHALER HFA (VENTOLIN HFA) 18 GM IH SCH (21:17)
[2019-09-16] MEDS ORDERED: LACTATED RINGERS 1,000 ML IV PRN (21:32)
[2019-09-16] MEDS ORDERED: MIDAZOLAM 2 MG/2 ML (VERSED) VIAL ONE (21:35)
[2019-09-16] MEDS ORDERED: MEPERIDINE (DEMEROL) INJ 50 MG/ML IVP ONE (21:45)
[2019-09-16] MEDS ORDERED: morphine INJ 10 MG/ML 1ML (SYR OR VIAL) IVP ONE (21:45)
--- NOTE | 2019-09-16 22:25 | NUR ---
patient left unit with OR nurses.
[2019-09-16 22:32] LABS: HEMOGLOBIN 13.4 G/DL (11.5-16.0); RED CELL DISTRIBUTION WIDTH 13.4 % (10.0-14.5); WHITE BLOOD COUNT 13.2 10^3/uL (4.3-11.0)
[2019-09-16] MEDS ORDERED: ROCURONIUM 10 MG/ML 5 ML SYRINGE IV ONE ×2 (22:51→23:38)
[2019-09-16] MEDS ORDERED: ISOFLURANE (FORANE) 15 ML/15 MIN INHALATION ONE ×2 (22:51→23:38)
[2019-09-16] MEDS ORDERED: LIDOCAINE PF 2% 5 ML (XYLOCAINE) VIAL ONE (22:51)
[2019-09-16] MEDS ORDERED: SUCCINYLCHOLINE INJ 100 MG/5 ML SYR ONE (22:51)
[2019-09-16] MEDS ORDERED: ONDANSETRON 4 MG/2 ML (SDV) Z0FRAN ONE (22:51)
[2019-09-16] MEDS ORDERED: proPOfol 200 MG/20 ML (DIPRIVAN) VIAL IV ONE (22:51)
[2019-09-16] MEDS ORDERED: ceFAZolin INJECTION 2,000 MG ONE (22:58)
--- NOTE | 2019-09-16 23:44 | Progress Note-Post Operative ---
Post-Operative Progess Note Surgeon (s)/Account Assistant (s) Surgeon MK AMADOR DO Account Assistant: Juanita Pre-Operative Diagnosis PSBO, Abd pain Post-Operative Diagnosis ISchemic Bowel Procedure & Operative Findings Date of Procedure 09/16/19 Procedure Performed/Findings Ex Lap with Small Bowel Resection Anesthesia Type GET Estimated Blood Loss Estimated blood loss (mL): appx 100ml Specimens/Packing Specimens Removed small bowel MK AMADOR DO Sep 16, 2019 23:44
[2019-09-16] MEDS ORDERED: ceFAZolin INJECTION 1,000 MG in WATER (STERILE) FOR INJECTION 10 ML IV SCH (23:45)
[2019-09-16] MEDS ORDERED: PROPOFOL DRIP (ICU) 100 ML IV ONE (23:48)
[2019-09-17] VITALS (26 sets, daily range): BP systolic 86–157; BP diastolic 43–82
[2019-09-17] MEDS ORDERED: PHENYLEPHRINE 100 MCG/ML 10 ML (ANESTHESIA) SYR ONE (00:03)
[2019-09-17] MEDS ORDERED: fentaNYL INJECTION 1,250 MCG in NORMAL SALINE 250 ML INJ SCH (00:30)
[2019-09-17] MEDS: LACTATED RINGERS 1,000 ML IV SCH ×5 (00:45→23:40)
[2019-09-17] MEDS: PROPOFOL DRIP (ICU) 100 ML IV SCH ×2 (00:58→04:52)
[2019-09-17] MEDS ORDERED: fentaNYL (OMNICELL DRIP KIT ONLY) 250 MCG/5 ML AMP ONE (01:07)
[2019-09-17] MEDS ORDERED: NS (IVPB) 100 ML ONE (01:08)
[2019-09-17 01:25] LABS: ABG BASE EXCESS 3.5 MMOL/L (-2.5-2.5); ABG OXYGEN SATURATION 97 % (94-100); ABG PCO2 44 MMHG (35-45); ABG PH 7.41 (7.37-7.43); ABG PO2 79 MMHG (79-93); ABG TCO2 29.5 MMOL/L (21.0-31.0)
[2019-09-17 01:28] LABS: ALLENS TEST YES-POS; INSPIRED O2 60%; VENTILATOR YES
[2019-09-17 01:29] LABS: PATIENT TEMP 35.7
[2019-09-17] MEDS: metroNIDAZOLE 500MG/100ML IVPB 100 ML IV SCH ×2 (01:36→07:04)
[2019-09-17] MEDS ORDERED: fentaNYL PCA 1,000 MCG/NS 80 ML (TOTAL VOLUME 100 ML) INJ SCH ×2 (02:45)
--- NOTE | 2019-09-17 03:30 | NUR ---
CALLED DR. LOZANO AND INFORMED HER THAT PATIENT'S COVID WAS NEGATIVE. RECEIVED ORDERS TO TAKE PATIENT OUT OF ISOLATION.
[2019-09-17 03:39] LABS: BASOPHILS % (AUTO) 0 % (0-10); EOSINOPHILS # (AUTO) 0.1 10^3/uL (0.0-0.3); EOSINOPHILS % (AUTO) 1 % (0-10); HEMATOCRIT 38 % (35-52); HEMOGLOBIN 12.9 G/DL (11.5-16.0); LYMPHOCYTES # (AUTO) 1.2 X 10^3 (1.0-4.0); LYMPHOCYTES % (AUTO) 9 % (12-44); MEAN CORPUSCULAR HEMOGLOBIN 30 PG (25-34); MEAN CORPUSCULAR HGB CONC 34 G/DL (32-36); MEAN CORPUSCULAR VOLUME 89 FL (80-99); MEAN PLATELET VOLUME 10.8 FL (7.4-10.4); MONOCYTES % (AUTO) 7 % (0-12); NEUTROPHILS # (AUTO) 11.5 X 10^3 (1.8-7.8); NEUTROPHILS % (AUTO) 83 % (42-75); PLATELET COUNT 259 10^3/uL (130-400); RED CELL DISTRIBUTION WIDTH 13.4 % (10.0-14.5); WHITE BLOOD COUNT 13.9 10^3/uL (4.3-11.0)
[2019-09-17 03:56] LABS: ALBUMIN 3.4 GM/DL (3.2-4.5)
[2019-09-17 03:57] LABS: CHLORIDE 98 MMOL/L (98-107); POTASSIUM 4.3 MMOL/L (3.6-5.0); SODIUM 134 MMOL/L (135-145)
[2019-09-17 03:58] LABS: CALCIUM 9.6 MG/DL (8.5-10.1)
[2019-09-17 03:59] LABS: GLUCOSE 116 MG/DL (70-105); TOTAL PROTEIN 6.1 GM/DL (6.4-8.2)
[2019-09-17 04:00] LABS: CARBON DIOXIDE 25 MMOL/L (21-32)
[2019-09-17 04:01] LABS: BILIRUBIN,TOTAL 0.2 MG/DL (0.1-1.0)
[2019-09-17 04:02] LABS: ALKALINE PHOSPHATASE 71 U/L (40-136); PHOSPHORUS 4.1 MG/DL (2.3-4.7)
[2019-09-17 04:03] LABS: CREATININE SERUM 0.77 MG/DL (0.60-1.30); GFR ESTIMATED > 60
[2019-09-17 04:04] LABS: BUN/CREATININE RATIO 17
[2019-09-17 04:06] LABS: ALANINE AMINOTRANSFERASE 16 U/L (0-55); MAGNESIUM 1.6 MG/DL (1.6-2.4)
[2019-09-17] MEDS: NS IV 1000 ML 1,000 ML IV SCH (04:17)
[2019-09-17] MEDS ORDERED: MAGNESIUM 1 GM/100 ML IVPB 200 ML IV ONE (04:39)
[2019-09-17] MEDS: MAGNESIUM 1 GM/100 ML IVPB 100 ML IV SCH ×2 (04:51→06:01)
[2019-09-17] MEDS ORDERED: POTASSIUM CL 10MEQ/50ML IVPB 50 ML IV SCH (06:00)
[2019-09-17] MEDS ORDERED: KCL 20 MEQ TAB (K-DUR) PO SCH (06:00)
[2019-09-17] MEDS ORDERED: MAGNESIUM 1 GM/100 ML IVPB 100 ML IV SCH (06:00)
[2019-09-17] MEDS: ceFAZolin INJECTION 1,000 MG in WATER (STERILE) FOR INJECTION 10 ML IV SCH ×2 (06:05→13:05)
[2019-09-17] MEDS: PANTOPRAZOLE 40 MG (PROTONIX) VIAL IVP SCH (08:10)
--- NOTE | 2019-09-17 08:20 | Diagnostic Imaging Report ---
INDICATION: Intubation, respiratory distress. COMPARISON: 09/16/2019 TECHNIQUE: Single radiograph of the chest dated 09/17/2019. FINDINGS: Interval placement of endotracheal tube with distal tip overlying the tracheal air column above the level of the drea just inferior to the level of the clavicular heads. Interval placement of an enteric catheter with the distal tip extending slightly into the stomach with the sidehole within the distal esophagus. The cardiac silhouette is within normal limits in size. No significant pulmonary vascular congestion. Pulmonary hyperinflation with background chronic interstitial lung changes. Platelike linear interstitial opacities are noted within the left midlung and right lung base. These are increasing since prior examination with increasing left perihilar opacities. No significant pleural effusion. No pneumothorax. No acute osseous abnormality. IMPRESSION: Interval placement of endotracheal tube and enteric catheters above. Increasing left perihilar and right basilar atelectasis and/or pneumonitis superimposed upon scarring within these regions. Dictated by: Dictated on workstation # [id number]
[2019-09-17 08:45] LABS: ABG BASE EXCESS 5.2 MMOL/L (-2.5-2.5); ABG OXYGEN SATURATION 95 % (94-100); ABG PCO2 41 MMHG (35-45); ABG PH 7.46 (7.37-7.43); ABG PO2 84 MMHG (79-93); ABG TCO2 30.1 MMOL/L (21.0-31.0)
[2019-09-17] MEDS ORDERED: LACTATED RINGERS 1,000 ML IV SCH (08:45)
[2019-09-17 08:46] LABS: ALLENS TEST YES-POS; INSPIRED O2 40%; VENTILATOR YES
--- NOTE | 2019-09-17 08:58 | NUR ---
ABG RESULTS GIVEN TO DR LOZANO.
--- NOTE | 2019-09-17 09:05 | History & Physical-Hospitalist ---
History of Present Illness HPI/Chief Complaint This is a 68-year-old white female presented to the [place] emergency room with complaints of abdominal pain and not having had a bowel movement for the last week. The patient was accepted in transfer with a small bowel obstruction and an NG tube was placed. She arrived yesterday afternoon. The patient began having increasing abdominal discomfort unresponsive to fentanyl and was seen in consultation by Dr. Lindsey late afternoon yesterday. Her findings were concerning enough that he performed an exploratory laparotomy finding ischemic bowel and resected part of the small bowel. The patient this morning is still on a ventilator having been kept on it overnight in an abundance of caution since she had COPD. She is awake but somewhat somnolent. She follows commands and can planes primarily of an tenured abdominal pain. Blood gases are satisfactory and we will attempt weaning this morning. She does have a history of being oxygen dependent wearing 2 L especially in the evenings. Source: patient, old records Exam Limitations: clinical condition (On the ventilator) Date Seen 09/17/19 Time Seen by a Provider: 08:15 Attending Physician Millie Leung MD PCP Emil Lange MD Referring Physician Date of Admission Sep 16, 2019 at 13:08 Home Medications & Allergies Home Medications Reviewed patient Home Medication Reconciliation performed by pharmacy medication reconciliations civil drafting technician and/or nursing. Patients Allergies have been reviewed. Allergies Allergies Coded Allergies No Known Drug Allergies (Unverified09/16/19) Past Ysetdbe-Sihyaw-Flizpq Hx Past Med/Social Hx: Reviewed Nursing Past Med/Soc Hx Patient Social History Alcohol Use: Denies Use Recreational Drug Use: No Smoking Status: Former Smoker (pt smoked at least a pack per day from [age]yo and then for 10 yrs just under 1/2 ppd, quit 2 years ago) Former Smoker, Quit: Feb 23, 2017 Type Used: Cigarettes 2nd Hand Smoke Exposure: No Recent Foreign Travel: No Contact w/other who traveled: No Recent Hopitalizations: No Recent Infectious Disease Expo: No Immunizations Up To Date Date of Pneumonia Vaccine: Sep 15, 2017 Seasonal Allergies Seasonal Allergies: No Past Medical History Currently Using CPAP: No Currently Using BIPAP: No Cardiac: Hypertension : No Family History Asthma, Cancer (Mother had a mass that perforated and she a few months ago), Hypertension (mother) Review of Systems Constitutional: see HPI Gastrointestinal: abdominal pain, constipation Psychiatric/Neurological: Anxiety Physical Exam Physical Exam Vital Signs Vital Signs - First Documented 09/16/19 09/17/19 07:22 00:23 Temp 36.9 Pulse 89 Resp 20 B/P (MAP) 152/107 (122) Pulse Ox 94 O2 Delivery Nasal Cannula O2 Flow Rate 3.00 FiO2 100 Capillary Refill : Less Than 3 SecondsLess Than 3 Seconds Height, Weight, BMI Height: '" Weight: lbs. oz. kg; 27.42 BMI Method: General Appearance: Other (Intubated) Neck: Limited Range of Motion Respiratory: Chest Non Tender, No Accessory Muscle Use, No Respiratory Distress, Decreased Breath Sounds Cardiovascular: Regular Rate, Rhythm, No Edema, No Gallop, No JVD, No Murmur, Normal Peripheral Pulses Gastrointestinal: Abnormal Bowel Sounds, Other (Postop) Extremity: Non Tender, No Calf Tenderness, No Pedal Edema Neurologic/Psychiatric: Other (Intubated and somewhat sedated) Skin: Pallor Results Results/Procedures Labs Laboratory Tests 09/16/19 07:35 09/16/19 22:20 09/17/19 03:25 Patient resulted labs reviewed. Imaging: Reviewed Imaging Report Assessment/Plan Admission Diagnosis Small bowel obstruction Ischemic bowel status post resection COPD-s/p ventilator support overnight- will begin weaning and extubate as possible Incidental thyroid nodule requiring follow-up on CT Admission Status: Inpatient Order (span 2 midnights) Reason for Inpatient Admission: Respiratory insufficiency requiring ventilator support with abdominal surgery compounding respiratory status Clinical Quality Measures DVT/VTE Risk/Contraindication: Risk Factor Score Per Nursin RFS Level Per Nursing on Admit: 4+=Very High Copy Copies To 1: [facility]/DEONDRE KELLOGG MD Sep 17, 2019 09:05
[2019-09-17 10:48] LABS: ABG BASE EXCESS 4.4 MMOL/L (-2.5-2.5); ABG OXYGEN SATURATION 95 % (94-100); ABG PCO2 51 MMHG (35-45); ABG PH 7.38 (7.37-7.43); ABG PO2 99 MMHG (79-93); ABG TCO2 30.8 MMOL/L (21.0-31.0)
[2019-09-17 10:49] LABS: ALLENS TEST YES-POS
[2019-09-17 10:50] LABS: INSPIRED O2 40%; PATIENT TEMP 99.3; VENTILATOR YES
--- NOTE | 2019-09-17 11:10 | NUR ---
PT EXTUBATED BY RT PER DR LOZANO AT THIS TIME, PT TOLERATED WELL. PT PLACED ON 4L O2 NC, SATS IN LOW 90'S.
[2019-09-17] MEDS: morphine INJ 10 MG/ML 1ML (SYR OR VIAL) IVP PRN ×2 (11:23→13:14)
--- NOTE | 2019-09-17 13:36 | Progress Note - Surgery ---
Subjective Time Seen by a Provider: 11:59 Subjective/Events-last exam Pt seen and examined, doing much better today (per pt) but still has some abdominal pain. Review of Systems General: Fatigue, Malaise Pulmonary: No Dyspnea, No Cough Cardiovascular: No: Chest Pain, Palpitations Gastrointestinal: Abdominal Pain; No: Nausea, Vomiting Objective Exam Vital Signs Date Time Temp Pulse Resp B/P (MAP) Pulse Ox O2 Delivery O2 Flow Rate FiO2 09/17/19 12:50 88 09/17/19 12:16 High Flow N/C 4.00 09/17/19 12:00 37.0 09/17/19 12:00 89 16 97/53 (68) 92 Nasal Cannula 4.00 09/17/19 11:25 Nasal Cannula 4.00 09/17/19 11:00 97 18 113/43 (66) 94 Mechanical Ventilator 40.00 09/17/19 10:00 98 28 114/56 (75) 92 Mechanical Ventilator 40.00 09/17/19 09:44 93 14 94 40 09/17/19 09:00 90 10 108/66 (80) 95 Mechanical Ventilator 40.00 09/17/19 08:00 80 7 86/48 (61) 94 Mechanical Ventilator 40.00 09/17/19 08:00 Mechanical Ventilator 40 09/17/19 08:00 37.8 09/17/19 07:33 79 09/17/19 07:04 77 90/52 09/17/19 07:00 76 9 89/44 (59) 94 Mechanical Ventilator 40.00 09/17/19 06:46 78 16 94 40 09/17/19 06:45 Mechanical Ventilator 40.00 09/17/19 06:07 73 100/49 09/17/19 06:00 73 16 92/50 (64) 96 Mechanical Ventilator 45.00 09/17/19 05:21 Mechanical Ventilator 45.00 09/17/19 05:00 77 15 97/57 (70) 97 Mechanical Ventilator 55.00 09/17/19 04:52 78 98/54 09/17/19 04:00 75 16 98/54 (69) 98 Mechanical Ventilator 55.00 09/17/19 04:00 98 Mechanical Ventilator 55 09/17/19 03:00 79 15 102/50 (67) 100 Mechanical Ventilator 55.00 09/17/19 02:52 80 16 98 60 09/17/19 02:00 82 12 105/56 (72) 96 Mechanical Ventilator 60.00 09/17/19 01:30 77 16 94/50 (65) 100 Mechanical Ventilator 60.00 09/17/19 01:30 96 Mechanical Ventilator 60 09/17/19 01:10 35.7 09/17/19 01:00 75 15 92/46 (61) 99 Mechanical Ventilator 60.00 09/17/19 00:58 98 151/75 09/17/19 00:45 79 16 111/58 (75) 91 Mechanical Ventilator 60.00 09/17/19 00:30 Mechanical Ventilator 15 09/17/19 00:30 36.1 16 127/82 (97) 94 Mechanical Ventilator 15 09/17/19 00:30 86 15 118/65 (82) 97 Mechanical Ventilator 60.00 09/17/19 00:23 106 16 97 100 09/17/19 00:20 16 151/75 (100) 94 Mechanical Ventilator 15 09/17/19 00:15 Mechanical Ventilator 15 09/17/19 00:15 91 16 127/82 (97) 94 Mechanical Ventilator 60.00 09/17/19 00:10 16 152/74 (100) 96 Mechanical Ventilator 15 09/17/19 00:02 91 09/17/19 00:00 Mechanical Ventilator 15 09/17/19 00:00 16 151/75 (100) 96 Mechanical Ventilator 15 09/16/19 23:50 16 167/86 (113) 96 Mechanical Ventilator 15 09/16/19 23:48 36.1 16 149/75 (99) 96 Mechanical Ventilator 15 09/16/19 23:48 Mechanical Ventilator 15 09/16/19 21:17 Nasal Cannula 3.00 09/16/19 20:00 95 Nasal Cannula 3.00 09/16/19 20:00 36.6 80 18 146/73 (97) 95 Nasal Cannula 3.50 09/16/19 16:16 37.6 86 96 09/16/19 15:35 37.6 86 20 143/79 (100) 96 Nasal Cannula 3.50 09/16/19 13:55 37.7 78 18 142/80 96 Nasal Cannula 4.00 09/16/19 13:54 37.6 78 18 142/80 (100) 96 Nasal Cannula 2.00 I & O 09/17/19 07:00 Intake Total 1310 ml Output Total 625 ml Balance 685 ml Capillary Refill : Less Than 3 SecondsLess Than 3 Seconds General Appearance: No Apparent Distress Respiratory: Chest Non Tender, No Accessory Muscle Use, No Respiratory Distress, Decreased Breath Sounds Cardiovascular: Regular Rate, Rhythm, No Murmur Gastrointestinal: No distended; tenderness (mostly at midline incision), other (incision is C/D/I) Extremity: Non Tender, No Calf Tenderness, No Pedal Edema Neurologic/Psychiatric: Other (Intubated and somewhat sedated) Skin: Pallor Results Lab Laboratory Tests 09/16/19 21:52: Glucometer 125H 09/16/19 22:20: White Blood Count 13.2H, Red Blood Count 4.52, Hemoglobin 13.4, Hematocrit 39, Mean Corpuscular Volume 87, Mean Corpuscular Hemoglobin 30, Mean Corpuscular Hemoglobin Concent 34, Red Cell Distribution Width 13.4, Platelet Count 305, Mean Platelet Volume 10.0 09/17/19 01:10: Blood Gas Puncture Site LEFT RADIAL, Blood Gas Patient Temperature 35.7, Arterial Blood pH 7.41, Arterial Blood Partial Pressure CO2 44, Arterial Blood Partial Pressure O2 79, Arterial Blood HCO3 28H, Arterial Blood Total CO2 29.5, Arterial Blood Oxygen Saturation 97, Arterial Blood Base Excess 3.5H, Nazario Test YES-POS, Blood Gas Ventilator Setting YES, Blood Gas Inspired Oxygen 60% 09/17/19 03:25: White Blood Count 13.9H, Red Blood Count 4.32L, Hemoglobin 12.9, Hematocrit 38, Mean Corpuscular Volume 89, Mean Corpuscular Hemoglobin 30, Mean Corpuscular Hemoglobin Concent 34, Red Cell Distribution Width 13.4, Platelet Count 259, Mean Platelet Volume 10.8H, Neutrophils (%) (Auto) 83H, Lymphocytes (%) (Auto) 9L, Monocytes (%) (Auto) 7, Eosinophils (%) (Auto) 1, Basophils (%) (Auto) 0, Neutrophils # (Auto) 11.5H, Lymphocytes # (Auto) 1.2, Monocytes # (Auto) 1.0, Eosinophils # (Auto) 0.1, Basophils # (Auto) 0.0, Sodium Level 134L, Potassium Level 4.3, Chloride Level 98, Carbon Dioxide Level 25, Anion Gap 11, Blood Urea Nitrogen 13, Creatinine 0.77, Estimat Glomerular Filtration Rate > 60, BUN/Creatinine Ratio 17, Glucose Level 116H, Calcium Level 9.6, Corrected Calcium 10.1, Phosphorus Level 4.1, Magnesium Level 1.6, Total Bilirubin 0.2, Aspartate Amino Transf (AST/SGOT) 14, Alanine Aminotransferase (ALT/SGPT) 16, Alkaline Phosphatase 71, Total Protein 6.1L, Albumin 3.4 09/17/19 08:37: Blood Gas Puncture Site RT RAD, Blood Gas Patient Temperature 99.0, Arterial Blood pH 7.46H, Arterial Blood Partial Pressure CO2 41, Arterial Blood Partial Pressure O2 84, Arterial Blood HCO3 29H, Arterial Blood Total CO2 30.1, Arterial Blood Oxygen Saturation 95, Arterial Blood Base Excess 5.2H, Nazario Test YES-POS, Blood Gas Ventilator Setting YES, Blood Gas Inspired Oxygen 40% 09/17/19 10:33: Blood Gas Puncture Site RIGHT RAD, Blood Gas Patient Temperature 99.3, Arterial Blood pH 7.38, Arterial Blood Partial Pressure CO2 51H, Arterial Blood Partial Pressure O2 99H, Arterial Blood HCO3 29H, Arterial Blood Total CO2 30.8, Arterial Blood Oxygen Saturation 95, Arterial Blood Base Excess 4.4H, Nazario Test YES-POS, Blood Gas Ventilator Setting YES, Blood Gas Inspired Oxygen 40% 09/17/19 11:38: Glucometer 122H Assessment/Plan Assessment/Plan Assessment/Plan S/P SBR Pt had ischemic bowel removed and is doing much better than yesterday. She was encouraged to ambulate, use IS and placed on clear liquid diet. Will try to add non-narcotics to pain regimen. Transfer to 4th floor. Clinical Quality Measures DVT/VTE Risk/Contraindication: Risk Factor Score Per Nursin RFS Level Per Nursing on Admit: 4+=Very High MK AMADOR DO Sep 17, 2019 13:36
[2019-09-17] MEDS: ACETAMINOPHEN 325 MG TABLET PO SCH ×2 (14:08→22:13)
[2019-09-17] MEDS: KETOROLAC 30 MG/ML VIAL IVP SCH ×2 (14:08→20:36)
--- NOTE | 2019-09-17 14:15 | NUR ---
20ML IV FENTANYL WASTED W/ RADHA HASSAN.
[2019-09-17] MEDS: RT-ALBUTEROL INHALER HFA (VENTOLIN HFA) 18 GM IH SCH ×2 (14:20→21:19)
--- NOTE | 2019-09-17 14:37 | NUR ---
PT TRANSFERRED TO [facility] VIA W/ STAFF AND PERSONAL BELONGINGS. REPORT GIVEN TO KONSTANTIN HASSAN, NO QUESTIONS/CONCERNS VOICED.
--- NOTE | 2019-09-17 14:47 | NUR ---
Patient arrived to room from ICU, SBAR report received from MO Cardenas. I agree with previous RN's assessment and will assume care at this time. Call light within reach, will continue to monitor.
[2019-09-17] MEDS: HYDROcodone/APAP 10 MG/325 MG (LORTAB) TAB PO PRN (17:10)
[2019-09-17] MEDS: ENOXAPARIN 40 MG/0.4 ML (LOVENOX) SYR SC SCH (17:10)
[2019-09-17] MEDS ORDERED: ENOXAPARIN 40 MG/0.4 ML (LOVENOX) SYR SC SCH (18:00)
--- NOTE | 2019-09-17 19:51 | OPERATIVE REPORT ---
DATE OF SERVICE: PREOPERATIVE DIAGNOSES: Abdominal pain, partial small-bowel obstruction. POSTOPERATIVE DIAGNOSIS: Ischemic bowel. PROCEDURE: Exploratory laparotomy with small bowel resection. SURGEON: Mk Lindsey DO HEEL DIPPER: Watson Grant DO. ANESTHESIA: General endotracheal tube. SPECIMEN: Ischemic small bowel. BLOOD LOSS: Less than 100 mL. FLUIDS: Per anesthesia. POSTOPERATIVE CONDITION: Stable. INDICATION FOR PROCEDURE: The patient is a 68-year-old female, who came in with severe abdominal pain and not getting any better, not helped with pain medications and needed to go to OR for exploratory laparotomy. FINDINGS: The patient had ischemic bowel and had a bowel resection. PROCEDURE NOTE: After informed consent was obtained, the patient was brought to the operating room, placed on the operating table in supine position. She was sterilely prepped and draped in normal fashion. Midline incision was made with #10 blade, carried down through the skin into subcutaneous tissue, then deepened to subcutaneous tissue with Bovie electrocautery down to the fascia. Fascia was incised with Bovie electrocautery, bluntly entered the abdomen, protected the bowel and then increased the incision superiorly and inferiorly with Bovie electrocautery, started pulling out small bowel, saw some dusky small bowel and as we continued to pull out, we found an area that was well demarcated of ischemic bowel. This area was about at least 12 inches long. Pulled out the rest of the small bowel, did not see any other ischemic changes. Ran a large bowel, did not feel anything up in the liver. At this point, then elected to do a small bowel resection, make an incision in the superior and inferior portion of the small bowel and then placed a YAMINI 55 on either side, clamped together, held for 30 seconds, then fired and held for 20 seconds and then removed and then used another YAMINI after we had made a defect in the mesentery under these holes and placed a YAMINI across this enteroenterotomy clamped it and then fired thereby transecting and closing the enteroenterotomy. Then, took the ischemic small bowel off of the mesentery, taking the mesentery with the LigaSure, clamping, coagulating and transecting in a stepwise fashion coming across and then removing this. Once this was completely removed, passed off table, placed a 3-0 Vicryl pop-off at the crotch of the anastomosis had a good opening between the 2 portions of small bowel and then closed the mesenteric defect with another 3-0 Vicryl running suture. Once this was done, then placed all the intestine back into the abdomen, copiously irrigated with normal saline, suctioned this out. At this point, then pulled the omentum down over the top of all the intestine and then elected to close the incision with #1 double stranded PDS suture running from superior portion to inferior portion tying to itself, copiously irrigated the midline incision with saline and then closed the skin with niko. Area was cleaned and dried and dressing placed. Sponge, instrument and needle count correct at the end of the case. Dr. Grant assisted in this case helping to close incision, identify anatomy and hold anatomy out of the way. Job ID: [id number] DocumentID: [id number] Dictated Date: 09/16/2019 23:40:36 Mds Coordinator Date: 09/17/2019 06:17:07 Dictated By: MK LINDSEY DO
[2019-09-18] VITALS: BP 102/54
[2019-09-18] MEDS: RT-ALBUTEROL INHALER HFA (VENTOLIN HFA) 18 GM IH SCH ×3 (02:39→14:45)
[2019-09-18] MEDS: KETOROLAC 30 MG/ML VIAL IVP SCH ×4 (03:33→20:05)
[2019-09-18 04:00] VITALS: BP 99/59
[2019-09-18] MEDS: ACETAMINOPHEN 325 MG TABLET PO SCH ×3 (06:05→22:00)
[2019-09-18 08:09] VITALS: BP 123/58
[2019-09-18] MEDS: PANTOPRAZOLE 40 MG (PROTONIX) VIAL IVP SCH (09:09)
[2019-09-18] MEDS ORDERED: PATIENT MAY USE OWN MEDS, ALL MC SCH (10:45)
[2019-09-18] MEDS: ONDANSETRON 4 MG/2 ML (SDV) Z0FRAN IVP PRN ×2 (10:48→20:05)
[2019-09-18] MEDS ORDERED: GLYCERIN ADULT SUPPOSITORY PR ONE (11:15)
--- NOTE | 2019-09-18 11:17 | Progress Note - Hospitalist ---
Subjective HPI/CC On Admission Date Seen by Provider: Sep 18, 2019 Time Seen by Provider: 10:30 This is a 68-year-old white female presented to the [place] emergency room with complaints of abdominal pain and not having had a bowel movement for the last week. The patient was accepted in transfer with a small bowel obstruction and an NG tube was placed. She arrived yesterday afternoon. The patient began having increasing abdominal discomfort unresponsive to fentanyl and was seen in consultation by Dr. Lindsey late afternoon yesterday. Her findings were concerning enough that he performed an exploratory laparotomy finding ischemic bowel and resected part of the small bowel. The patient this morning is still on a ventilator having been kept on it overnight in an abundance of caution since she had COPD. She is awake but somewhat somnolent. She follows commands and can planes primarily of an tenured abdominal pain. Blood gases are satisfa ctory and we will attempt weaning this morning. She does have a history of being oxygen dependent wearing 2 L especially in the evenings. Subjective/Events-last exam Patient complains of some nausea this morning. She also has a cough with some rib pain that's productive of yellow sputum. Her breathing is about the same and she requests to restart her Advair. She has not had a bowel movement since before this admission and actually about 5 days prior to this admission Review of Systems Pulmonary: Dyspnea, Cough Gastrointestinal: Nausea, Constipation Objective Exam Vital Signs Vital Signs Date Time Temp Pulse Resp B/P (MAP) Pulse Ox O2 Delivery O2 Flow Rate FiO2 09/18/19 08:26 90 Nasal Cannula 4.00 09/18/19 08:09 37.2 87 18 123/58 (79) 09/17/19 09:44 40 Capillary Refill : Less Than 3 SecondsLess Than 3 Seconds General Appearance: No Apparent Distress, WD/WN HEENT: Normal ENT Inspection Neck: Full Range of Motion, Normal Inspection, Non Tender, Supple Respiratory: Lungs Clear, No Accessory Muscle Use, No Respiratory Distress, Decreased Breath Sounds Cardiovascular: Regular Rate, Rhythm, No Gallop, No Murmur Gastrointestinal: Soft, Abnormal Bowel Sounds (Quiet) Back: Normal Inspection Extremity: No Pedal Edema Results/Procedures Lab Patient resulted labs reviewed. Imaging: Reviewed Imaging Report Assessment/Plan Assessment and Plan Assess & Plan/Chief Complaint Postop day number 2 status post resection ischemic bowel doing well Nausea with constipation we'll try glycerin suppository 1, Zofran when necessary and advance diet as tolerated COPD with increased sputum we'll check a chest x-ray Incidental thyroid nodule that will need follow-up noted on CT Clinical Quality Measures DVT/VTE Risk/Contraindication: Risk Factor Score Per Nursin RFS Level Per Nursing on Admit: 4+=Very High DEONDRE LOZANO MD Sep 18, 2019 11:17
[2019-09-18 11:53] VITALS: BP 112/57
[2019-09-18] MEDS: HYDROcodone/APAP 10 MG/325 MG (LORTAB) TAB PO PRN ×2 (12:09→15:54)
[2019-09-18] MEDS: TIOTROPIUM BROMIDE (SPIRIVA) 5'S INHALER IH SCH (13:11)
[2019-09-18] MEDS: ADVAIR IH SCH ×2 (13:12→20:06)
--- NOTE | 2019-09-18 14:39 | Progress Note - Surgery ---
Subjective Time Seen by a Provider: 13:53 Subjective/Events-last exam Pt seen and examined, states no flatus with some increased nausea and pain. She also thinks she is "a little bloated". Still tolerating clears and states pain is nothing like when she came in. Review of Systems General: No Chills; Fatigue, Malaise Pulmonary: No Dyspnea, No Cough Cardiovascular: No: Chest Pain, Palpitations Gastrointestinal: Nausea, Abdominal Pain; No: Vomiting Objective Exam Vital Signs Date Time Temp Pulse Resp B/P (MAP) Pulse Ox O2 Delivery O2 Flow Rate FiO2 09/18/19 12:40 37.0 09/18/19 11:53 37.0 83 18 112/57 (75) 98 Nasal Cannula 4.00 09/18/19 08:26 90 Nasal Cannula 4.00 09/18/19 08:09 37.2 87 18 123/58 (79) 93 Nasal Cannula 4.00 09/18/19 08:00 93 Nasal Cannula 4.00 09/18/19 04:00 37.2 80 14 99/59 (72) 95 Nasal Cannula 4.00 09/18/19 02:39 92 Nasal Cannula 4.00 09/18/19 00:00 36.8 76 20 102/54 (70) 93 Nasal Cannula 4.00 09/17/19 21:20 93 Nasal Cannula 4.00 09/17/19 20:00 Nasal Cannula 4.00 09/17/19 19:00 36.6 83 18 121/61 (81) 91 Nasal Cannula 4.00 09/17/19 17:10 37.0 09/17/19 15:54 37.0 81 20 102/55 (71) 93 Nasal Cannula 4.00 I & O 09/18/19 07:00 Intake Total 2490 ml Output Total 250 ml Balance 2240 ml Capillary Refill : Less Than 3 SecondsLess Than 3 Seconds General Appearance: No Apparent Distress, Obese Respiratory: Lungs Clear, Normal Breath Sounds, No Accessory Muscle Use, No Respiratory Distress Cardiovascular: Regular Rate, Rhythm, No Murmur Gastrointestinal: soft, tenderness (mostly at midline incision), other (incision is C/D/I, abdomen about the same as yesterday.......maybe slightly bigger) Extremity: No Pedal Edema Neurologic/Psychiatric: Other (Intubated and somewhat sedated) Skin: Pallor Results Lab Laboratory Tests 09/17/19 19:29: Glucometer 111H 09/17/19 23:40: Glucometer 111H 09/18/19 05:46: Glucometer 99 09/18/19 11:24: Glucometer 110 09/18/19 11:38: Thyroid Stimulating Hormone (TSH) 1.19 Microbiology 09/17/19 Gram Stain - Final, Resulted 09/17/19 Sputum Culture - Preliminary, Resulted Usual upper respiratory amanda Haemophilus influenza Assessment/Plan Assessment/Plan Assessment/Plan S/P SBR She was encouraged to ambulate, use IS and will continue clear liquid diet. I think this is all still post-operative (normal stuff), will monitor and check labs tomorrow. Clinical Quality Measures DVT/VTE Risk/Contraindication: Risk Factor Score Per Nursin RFS Level Per Nursing on Admit: 4+=Very High MK AMADOR DO Sep 18, 2019 14:39
--- NOTE | 2019-09-18 14:57 | Diagnostic Imaging Report ---
INDICATION: Cough with yellow sputum COMPARISON: 09/17/2019 DeGraff technique: 2 radiographs of the chest dated 09/18/2019. FINDINGS: Interval extubation and removal of enteric catheter. The cardiac silhouette is within normal limits in size. No significant pulmonary vascular congestion. Decreased lung volumes. Persisting platelike consolidation within the left mid lung, similar given differences in positioning. Minimal right basilar opacities with slight blunting of the right costophrenic angle. No pneumothorax. No acute osseous abnormality. IMPRESSION: Interval extubation and removal of enteric catheter. Decreased lung volumes with developing minimal right basilar atelectasis and/or pneumonitis. Persisting scar versus pneumonitis within the left midlung. Dictated by: Dictated on workstation # [id number]
[2019-09-18] MEDS: LACTATED RINGERS 1,000 ML IV SCH ×2 (15:54→23:30)
[2019-09-18 16:30] VITALS: BP 127/55
--- NOTE | 2019-09-18 16:46 | Anesthesia-General Post-Op ---
General Patient Condition Mental Status/LOC: Same as Preop Cardiovascular: Satisfactory Nausea/Vomiting: Absent Respiratory: Satisfactory Pain: Controlled Complications: Absent Post Op Complications Complications None Follow Up Care/Instructions Patient Instructions None needed. Anesthesia/Patient Condition Patient Condition Patient is doing well, no complaints, stable vital signs, no apparent adverse anesthesia problems. No complications reported per nursing. LEONOR LACKEY ALCOHOL RUBBER Sep 18, 2019 16:46
[2019-09-18] MEDS: ENOXAPARIN 40 MG/0.4 ML (LOVENOX) SYR SC SCH (17:29)
[2019-09-18 19:19] VITALS: BP 130/58
[2019-09-19] VITALS (7 sets, daily range): BP systolic 96–147; BP diastolic 61–84
[2019-09-19] MEDS: ADVAIR HFA 115/21 MCG INHALER 8 GM IH SCH ×2 (01:09→07:55)
[2019-09-19] MEDS: RT-ALBUTEROL INHALER HFA (VENTOLIN HFA) 18 GM IH SCH ×5 (01:10→21:09)
[2019-09-19] MEDS: KETOROLAC 30 MG/ML VIAL IVP SCH ×4 (01:30→20:06)
[2019-09-19] MEDS: morphine INJ 10 MG/ML 1ML (SYR OR VIAL) IVP PRN (03:18)
[2019-09-19] MEDS: ACETAMINOPHEN 325 MG TABLET PO SCH ×3 (05:07→22:01)
[2019-09-19 05:53] LABS: BASOPHILS % (AUTO) 0 % (0-10); EOSINOPHILS # (AUTO) 0.3 10^3/uL (0.0-0.3); EOSINOPHILS % (AUTO) 3 % (0-10); HEMATOCRIT 31 % (35-52); HEMOGLOBIN 9.9 G/DL (11.5-16.0); LYMPHOCYTES # (AUTO) 1.3 X 10^3 (1.0-4.0); LYMPHOCYTES % (AUTO) 15 % (12-44); MEAN CORPUSCULAR HEMOGLOBIN 29 PG (25-34); MEAN CORPUSCULAR HGB CONC 32 G/DL (32-36); MEAN CORPUSCULAR VOLUME 91 FL (80-99); MEAN PLATELET VOLUME 9.8 FL (7.4-10.4); MONOCYTES # (AUTO) 0.5 X 10^3 (0.0-1.0); MONOCYTES % (AUTO) 5 % (0-12); NEUTROPHILS # (AUTO) 6.8 X 10^3 (1.8-7.8); NEUTROPHILS % (AUTO) 77 % (42-75); PLATELET COUNT 260 10^3/uL (130-400); RED CELL DISTRIBUTION WIDTH 13.4 % (10.0-14.5); WHITE BLOOD COUNT 8.8 10^3/uL (4.3-11.0)
[2019-09-19 06:10] LABS: CHLORIDE 102 MMOL/L (98-107); POTASSIUM 3.9 MMOL/L (3.6-5.0); SODIUM 136 MMOL/L (135-145)
[2019-09-19 06:11] LABS: CALCIUM 8.4 MG/DL (8.5-10.1)
[2019-09-19 06:13] LABS: GLUCOSE 89 MG/DL (70-105); TOTAL PROTEIN 5.5 GM/DL (6.4-8.2)
[2019-09-19 06:14] LABS: BILIRUBIN,TOTAL 0.2 MG/DL (0.1-1.0); CARBON DIOXIDE 24 MMOL/L (21-32)
[2019-09-19 06:16] LABS: ALKALINE PHOSPHATASE 63 U/L (40-136); CREATININE SERUM 0.69 MG/DL (0.60-1.30); GFR ESTIMATED > 60
[2019-09-19 06:17] LABS: BUN/CREATININE RATIO 23
[2019-09-19 06:19] LABS: ALANINE AMINOTRANSFERASE 10 U/L (0-55)
[2019-09-19] MEDS: PANTOPRAZOLE 40 MG (PROTONIX) VIAL IVP SCH (07:54)
[2019-09-19] MEDS: TIOTROPIUM BROMIDE (SPIRIVA) 5'S INHALER IH SCH (07:55)
[2019-09-19] MEDS: ADVAIR IH SCH ×2 (07:55→21:08)
[2019-09-19] MEDS: LACTATED RINGERS 1,000 ML IV SCH ×2 (07:57→17:53)
--- NOTE | 2019-09-19 10:20 | Progress Note - Hospitalist ---
Subjective HPI/CC On Admission Date Seen by Provider: Sep 19, 2019 Time Seen by Provider: 10:00 This is a 68-year-old white female presented to the [place] emergency room with complaints of abdominal pain and not having had a bowel movement for the last week. The patient was accepted in transfer with a small bowel obstruction and an NG tube was placed. She arrived yesterday afternoon. The patient began having increasing abdominal discomfort unresponsive to fentanyl and was seen in consultation by Dr. Lindsey late afternoon yesterday. Her findings were concerning enough that he performed an exploratory laparotomy finding ischemic bowel and resected part of the small bowel. The patient this morning is still on a ventilator having been kept on it overnight in an abundance of caution since she had COPD. She is awake but somewhat somnolent. She follows commands and can planes primarily of an tenured abdominal pain. Blood gases are satisfactory and we will attempt weaning this morning. She does have a history of being oxygen dependent wearing 2 L especially in the evenings. Subjective/Events-last exam Patient doing better Maintained on 4L/min and usually uses O2 prn during day and at night always No pain reported unless she moves her abdomen PT OT ordered Works for [employer] in [place] for 35 years Former smoker Review of Systems General: Fatigue, Malaise Gastrointestinal: Nausea, Abdominal Pain Objective Exam Vital Signs Vital Signs Date Time Temp Pulse Resp B/P (MAP) Pulse Ox O2 Delivery O2 Flow Rate FiO2 09/19/19 19:29 37.0 90 20 132/78 (96) 95 Nasal Cannula 4.00 09/17/19 09:44 40 Capillary Refill : Less Than 3 SecondsLess Than 3 Seconds General Appearance: No Apparent Distress, WD/WN HEENT: PERRL/EOMI, TMs Normal, Normal ENT Inspection, Pharynx Normal, Moist Mucous Membranes Neck: Full Range of Motion, Normal Inspection, Non Tender, Supple, Carotid Bruit Respiratory: Chest Non Tender, Lungs Clear, Normal Breath Sounds, No Accessory Muscle Use, No Respiratory Distress Cardiovascular: Regular Rate, Rhythm, No Edema, No Gallop, No JVD, No Murmur, Normal Peripheral Pulses Gastrointestinal: Normal Bowel Sounds, No Organomegaly, No Pulsatile Mass, Soft, Tenderness Back: Normal Inspection, No CVA Tenderness, No Vertebral Tenderness Extremity: Normal Capillary Refill, Normal Inspection, Normal Range of Motion, Non Tender, No Calf Tenderness, No Pedal Edema Neurologic/Psychiatric: Alert, Oriented x3, No Motor/Sensory Deficits, Normal Mood/Affect Skin: Normal Color, Warm/Dry Lymphatic: No Adenopathy Results/Procedures Lab Laboratory Tests 09/19/19 05:36 Patient resulted labs reviewed. Imaging: Reviewed Imaging Report Assessment/Plan Assessment and Plan Assess & Plan/Chief Complaint Assessment: SBO required surgery Hypoxia HTN Night time Hypoxia Post Op Ileus Plan: IV fluids NPO Monitor labs Ambulate PT OT Maintain Oxygen Change dressing daily Clinical Quality Measures DVT/VTE Risk/Contraindication: Risk Factor Score Per Nursin RFS Level Per Nursing on Admit: 4+=Very High SRINIVASAN ORTIZ DO Sep 19, 2019 10:20
--- NOTE | 2019-09-19 10:37 | NUR ---
Pt has no spiritism preference and expressed no spiritual needs at this time. Pbx Installer offered blessing.
[2019-09-19] MEDS ORDERED: FLUT1DIS27 PO (10:56)
[2019-09-19] MEDS ORDERED: RT-ALBUINH PO (10:56)
[2019-09-19] MEDS ORDERED: ALBU2.5V4 NEB (10:56)
[2019-09-19] MEDS ORDERED: LOSA1TAB26 PO (10:56)
[2019-09-19] MEDS ORDERED: PRAV20TA3 PO (10:56)
[2019-09-19] MEDS ORDERED: ASPI-983 PO (10:56)
[2019-09-19] MEDS ORDERED: LORA-404 PO (10:56)
[2019-09-19] MEDS ORDERED: UBID50TA3 PO (10:56)
[2019-09-19] MEDS ORDERED: TIOT18CA2 IN (10:56)
--- NOTE | 2019-09-19 10:59 | NUR ---
SPOKE WITH THE PT AND WENT THRU THE EXT MED HISTORY TO COMPLETE THE MED REC PT WAS ABLE TO LIST ALL HER MEDICATIONS AND HOW/WHEN SHE TAKES EACH- ALL HER INFORMATION MATCHED THE EXT MED HISTORY OTC MEDS: COQ10 CHEWABLE ASPIRIN 81
--- NOTE | 2019-09-19 11:54 | NUR ---
CALLED ABOUT PAIN MEDICATION
--- NOTE | 2019-09-19 12:06 | Physician Query Clarification ---
PQ-Further Specificity Admission/Discharge Admission Date: Sep 16, 2019 at 13:08 Discharge Date: The medical record reflects the following clinical scenario: History/Risk Factors: Partial Small Bowel Obstruction Clinical Findings: Findings at time of surgery: Ischemic bowel Treatment: Small bowel resection. Question: Can you further specify Small bowel ischemia per the clinical indicators above? Please document a response in the Progress Notes or Discharge Summary. 1. Acute small bowel ischemia. 2. Chronic small bowel ischemia. 3. Other, with explanation of the clinical findings. 4. Clinically undetermined, no explanation for the clinical findings. Please remember a lack of response to the above will prompt a phone page by CDI/Coding staff. In responding to this query, please exercise your independent professional judgment. The purpose of this communication is to more accurately reflect the complexity of your patients condition. The fact that a question is asked does not imply that any particular answer is desired or expected. Thank you for your timely response to this clarification. Requestors name: Elida Contreras [facility] Phone # ext [phone] or [phone] THIS PHYSICIAN QUERY FORM IS A PERMANENT PART OF THE MEDICAL RECORD ELIDA CONTRERAS Sep 19, 2019 12:06
--- NOTE | 2019-09-19 14:26 | Physical Therapy Evaluation ---
PT Evaluation-General Medical Diagnosis Admission Date Sep 16, 2019 at 13:08 Medical Diagnosis: SBO Onset Date: Sep 16, 2019 Therapy Diagnosis Therapy Diagnosis: debility Precautions Precautions/Isolations: Standard Precautions Weight Bear Status Right Lower Extremity: Right Full Weight Bearing Left Lower Extremity: Left Full Weight Bearing Referral Physician: Ana Reason for Referral: Evaluation/Treatment Medical History Pertinent Medical History: COPD Current History ER secondary to abdominal pain Reviewed History: Yes Social History Home: Single Level Current Living Status: Spouse Entry Into Home: Level Entry Prior Prior Level of Function SCALE: Activities may be completed with or without assistive devices. 3-Nfhfwlmvlb-zlsdgxr completes the activity by him/herself with no assistance from a helper. 5-Set-up or Clean-up Assistance-helper sets up or cleans up; patient completes activity. [place] assists only prior to or following the activity. 4-Supervision or Touching Assistance-helper provides verbal cues and/or touching/steadying and/or contact guard assistance as patient completes activity. Assistance may be provided throughout the activity or intermittently. 3-Partial/Moderate Assistance-helper does LESS THAN HALF the effort. [place] lifts, holds or supports trunk or limbs, but provides less than half the effort. 2-Substantial/Maximal Assistance-helper does MORE THAN HALF the effort. [place] lifts or holds trunk or limbs and provides more than half the effort. 1-Ixsjwuqpo-plascx does ALL the effort. Patient does none of the effort to c omplete the activity. Or, the assistance of 2 or more helpers is required for the patient to complete the activity. If activity was not attempted, code reason: 7-Patient Refused. 9-Not Applicable-not attempted and the patient did not perform the activity before the current illness, exacerbation or injury. 10-Not Attempted due to Environmental Limitations-(lack of equipment, weather restraints, etc.). 88-Not Attempted due to Medical Conditions or Safety Concerns. 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 She report she has been ambulating with nursing staff PRN in hallway. Pain Numeric Pain Scale: 5-Moderate Pain Location: Lower Location Body Site: Abdomen Pain Description: Acute Objective Patient Orientation: Normal For Age Attachments: Oxygen, IV ROM/Strength ROM Lower Extremities bilateral LE WFL Strength Lower Extremities 4+/5 grossly bilateral LE Integumentary/Posture Integumentary refer to nursing notes Bowel Incontinence: No Bladder Incontinence: No Posture WFL (slightly trunk flexed due to abdominal discomfort with ability to correct) Neuromuscular (Tone, Coordination, Reflexes) grossly intact Sensory Vision: Functional Hearing: Functional Sensation Right Lower Extremit: Intact Sensation Left Lower Extremity: Intact Transfers Roll Left to Right (QC): 6 Sit to Lying (QC): 6 Lying to Sitting/Side of Bed(Q: 6 Sit to Stand (QC): 6 Chair/Bgj-oz-Xewxi Xfer(QC): 6 Gait Does the Patient Walk?: Yes Mode of Locomotion: Walk Anticipated Mode of Locomotion: Walk Walk 10 feet (QC): 6 Walk 50 ft with 2 Turns(QC): 6 Walk 150 ft (QC): 6 Distance: 500' Gait Assistive Device: FWW Comments/Gait Description safe, functional with no deviation Balance Sitting Static: Normal Sitting Dynamic: Normal Standing Static: Normal Standing Dynamic: Normal Assessment/Needs 68 y.o. female, is currently at [facility] with gross motor skills and does not require skilled therapy intervention. Patient has been ambulating with nursing staff and has been instructed to ambulate PRN in hallway with them. If not attached to IV, patient is safe to ambulate self PRN. Rehab Potential: Fair PT Plan Treatment/Plan Treatment Plan: Discontinue PT, goals met Treatment Duration: Sep 19, 2019 Frequency: 1 time per week Estimated Hrs Per Day: .25 hour per day Discharge Recommendations Therapy Discharge Recommendati: Home & Family Time/GCodes Time In: 1340 Time Out: 1353 Total Billed Treatment Time: 13 Total Billed Treatment 1 visit EVLow 13 min DANILO HOLT PT Sep 19, 2019 14:26
--- NOTE | 2019-09-19 14:32 | Occupational Therapy Eval ---
OT Evaluation-General/PLF Medical Diagnosis Admission Date Sep 16, 2019 at 13:08 Medical Diagnosis: Small bowel obstruction and repair Onset Date: Sep 16, 2019 Therapy Diagnosis Therapy Diagnosis: Decreased ADL status Precautions Precautions/Isolations: Standard Precautions Referral Physician: Lucy Perez DO Referral Reason: Activity Tolerance, Self Care, Evaluation/Treatment, Strengthening/ROM Medical History Pertinent Medical History: COPD, HTN Current History Pt admits to [facility] with abdominal pain/ no BM for 1 week. Pt underwent small bowel resection. Pt ventilated 09/15 to 09/16. Reviewed History: Yes Social History Home: Single Level Current Living Status: Spouse Entry Into Home: Stairs With Railing Steps Into Home: 2 ADL-Prior Level of Function SCALE: Activities may be completed with or without assistive devices. 7-Ykglolmxdr-hbzmlug completes the activity by him/herself with no assistance from a helper. 5-Set-up or Clean-up Assistance-helper sets up or cleans up; patient completes activity. [place] assists only prior to or following the activity. 4-Supervision or Touching Assistance-helper provides verbal cues and/or touching/steadying and/or contact guard assistance as patient completes activity. Assistance may be provided throughout the activity or intermittently. 3-Partial/Moderate Assistance-helper does LESS THAN HALF the effort. [place] lifts, holds or supports trunk or limbs, but provides less than half the effort. 2-Substantial/Maximal Assistance-helper does MORE THAN HALF the effort. [place] lifts or holds trunk or limbs and provides more than half the effort. 7-Yvtwtggku-stkjrc does ALL the effort. Patient does none of the effort to complete the activity. Or, the assistance of 2 or more helpers is required for the patient to complete the activity. If activity was not attempted, code reason: 7-Patient Refused. 9-Not Applicable-not attempted and the patient did not perform the activity before the current illness, exacerbation or injury. 10-Not Attempted due to Environmental Limitations-(lack of equipment, weather restraints, etc.). 88-Not Attempted due to Medical Conditions or Safety Concerns. ADL PLOF Comments Pt IND with I/ ADL tasks. Self Care: Independent Functional Cognition: Independent DME/Equipment: Bath Chair, Grab Bars, Shower DME/Equipment Comments sc, shower, grab bars (outside of shower) Occupation: [employer] [address] Self: Yes OT Current Status Subjective Pt seen in recliner. Pt states 6/10 pain, states went down from 10/10 pain earlier. pt agrees to OT eval/ treat. Pt alert/ 0x4. Mental Status/Objective Patient Orientation: Person, Place, Time, Situation, Normal For Age Attachments: IV, Oxygen Current Upper Extremity ROM WFL BUE Upper Extremity Coordination WFL BUE Upper Extremity Sensation WFL BUE Upper Extremity Strength WFL BUE ADL-Treatment Eating (QC): 6 Shower/Bathe Self (QC): 4 (SBA during stance (sponge bath)) Upper Body Dressing (QC): 5 (s/u gown donning.) Lower Body Dressing (QC): 6 (completes with IND, cues for safety/ energy conservation) On/Off Footwear (QC): 6 (shoes doff/ donned. ) Toileting Hygiene (QC): 4 (SBA) Other Treatments Pt seen in chair. Pt agrees to OT. Pt educated on OT role. Pt states pain 5-6/10 in abdomen. 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 Pt states IND at home, no walker. Pt drives/ completes IADLs. Pt requests bath- completes with SBA and cues for safety (sitting for LB dressing due to pain) and energy conservation. Pt completes, states increased bloating/ gas pain/ pain from surgery. pt educated on diaphragmatic breathing tasks- educated on purpose, demonstrated, and pt return demonstrates with cues for breathing technique/ co mpleting as tolerated/ not pushing past pain limit. Pt agrees. Pt educated on AE for LB dressing tasks for future use if needed. Pt agrees. All needs met, call light in reach. Pt remains in chair. Eval and 1 skilled OT session; d/c as pt has been educated on AE/ safety measures/ pain management techniques. Education OT Patient Education: Correct positioning, Energy conservation, Exercise program, Home exercise program, Modified ADL techniques, Progress toward Goal/Update tx plan, Purpose of tx/functional activities, Safety issues, Use of adapted equipment Teaching Recipient: Patient Teaching Methods: Demonstration, Discussion Response to Teaching: Verbalize Understanding, Return Demonstration, Reinforcement Needed OT Jail Goals Business Machine Operator Goals 1=Demonstrate adherence to instructed precautions during ADL tasks. 2=Patient will verbalize/demonstrate understanding of assistive devices/modifications for ADL. 3=Patient will improve strength/tolerance for activity to enable patient to perform ADL's. OT Education/Plan Problem List/Assessment Assessment: No Skilled OT Needs ID'd Discharge Recommendations Plan/Recommendations: Continue POC Therapy Discharge Recommendati: Home & Family Equpiment Recommendations-D/C: Hip Kit Treatment Plan/Plan of Care Treatment,Training & Education: Yes Patient would benefit from OT for education, treatment and training to promote independence in ADL's, mobility, safety and/or upper extremity function for ADL's. Plan of Care: OTHER (eval and d/c. ) Treatment Duration: Sep 19, 2019 Frequency: 1 time per week (eval, treat, and d/c. ) Time/GCodes Start Time: 13:55 Stop Time: 14:20 Total Time Billed (hr/min): 25 Billed Treatment Time 1, EVL (10), ADL (15)= 25 Eval and 1 skilled OT session; d/c as pt has been educated on AE/ safety measures/ pain management techniques. FERDINAND RIVERA OTR Sep 19, 2019 14:32
--- NOTE | 2019-09-19 15:18 | NUR ---
RD ASSESSMENT PMHx: HTN; s/p small bowel resection PT INTERACTION: Pt was awake and pleasant during nutrition assessment. Pt states current appetite is decent. Note avg PO intake <25% meals, per chart review. Pt states following a regular diet at home, and has no issues with chewing/swallowing food. Pt states no recent issues with nausea, vomiting, or diarrhea. Pt states some recent issues with constipation. Note pt admitted for small bowel obstruction, per chart review. Pt states unsure of last BM, "I think it was a week ago tomorrow, or a week ago today." Note pt not currently on bowel regimen per chart review. Pt states no recent wt changes. Note unable to determine recent wt hx, per chart review. ABNORMAL NUTRITION-RELATED LAB VALUES LOW: Ca 8.4; Pro 5.5; alb 3.0 HIGH: Est. kcal needs: 1450 kcal | 20 kcal/kg Est. Pro needs: 58 g Pro | 0.8 g Pro/kg PES STATEMENT: Inadequate oral intake (NI-2.1) related to loss of appetite as evidenced by pt interview | avg PO intake <25% meals INTERVENTION: Continue with current diet order of Clear Liquid diet. Pt may benefit from diet advancement as medically able and as tolerated. Pt may benefit from nutrition supplementation if PO intake remains low. Encouraged pt to eat when able. Will continue to follow and reassess as pt needs, intake, and status change. MONITOR/EVALUATE: PO Intake; Plan of Care; Hydration Status; Weight Status; Lab Values Marsha Johnson, MS, RD, LD
--- NOTE | 2019-09-19 15:51 | Progress Note - Surgery ---
Subjective Time Seen by a Provider: 15:09 Subjective/Events-last exam Pt seen and examined states she feels better than yesterday, but still bloated. She has not had any flatus or BM's yet. Review of Systems General: No Chills, No Night Sweats Pulmonary: No Dyspnea Cardiovascular: No: Chest Pain Gastrointestinal: Abdominal Pain; No: Nausea, Vomiting Objective Exam Vital Signs Date Time Temp Pulse Resp B/P (MAP) Pulse Ox O2 Delivery O2 Flow Rate FiO2 09/19/19 14:56 95 Nasal Cannula 4.00 09/19/19 11:55 37.5 87 20 119/72 (88) 93 Nasal Cannula 4.00 09/19/19 09:58 95 Nasal Cannula 4.00 09/19/19 09:00 95 Nasal Cannula 4.00 09/19/19 08:00 36.6 96 20 107/66 (80) 91 Nasal Cannula 4.00 09/19/19 04:00 37.4 86 18 96/65 (75) 96 Nasal Cannula 4.00 09/19/19 04:00 37.4 09/19/19 03:18 37.2 09/19/19 02:59 95 Nasal Cannula 4.00 09/19/19 00:00 37.2 89 18 106/61 (76) 96 Nasal Cannula 4.00 09/18/19 20:35 37.4 09/18/19 20:30 96 Nasal Cannula 4.00 09/18/19 20:05 37.1 09/18/19 19:19 37.1 82 16 130/58 (82) 96 Nasal Cannula 4.00 09/18/19 16:30 37.0 83 20 127/55 (79) 97 Nasal Cannula 4.00 I & O 09/19/19 07:00 Intake Total 1220 ml Output Total 600 ml Balance 620 ml Capillary Refill : Less Than 3 SecondsLess Than 3 Seconds General Appearance: No Apparent Distress, Obese Neck: Carotid Bruit Respiratory: Chest Non Tender, Lungs Clear, Normal Breath Sounds, No Accessory Muscle Use, No Respiratory Distress Cardiovascular: Regular Rate, Rhythm, No Murmur Gastrointestinal: soft, tenderness (mostly at midline incision), other (incision is C/D/I, abdomen about the same as yesterday) Extremity: No Calf Tenderness Lymphatic: No Adenopathy Results Lab Laboratory Tests 7/26/20 18:09: Glucometer 128H 09/19/19 00:19: Glucometer 95 09/19/19 05:19: Glucometer 92 09/19/19 05:36: White Blood Count 8.8, Red Blood Count 3.39L, Hemoglobin 9.9#L, Hematocrit 31L, Mean Corpuscular Volume 91, Mean Corpuscular Hemoglobin 29, Mean Corpuscular Hemoglobin Concent 32, Red Cell Distribution Width 13.4, Platelet Count 260, Mean Platelet Volume 9.8, Neutrophils (%) (Auto) 77H, Lymphocytes (%) (Auto) 15, Monocytes (%) (Auto) 5, Eosinophils (%) (Auto) 3, Basophils (%) (Auto) 0, Neutrophils # (Auto) 6.8, Lymphocytes # (Auto) 1.3, Monocytes # (Auto) 0.5, Eosinophils # (Auto) 0.3, Basophils # (Auto) 0.0, Sodium Level 136, Potassium Level 3.9, Chloride Level 102, Carbon Dioxide Level 24, Anion Gap 10, Blood Urea Nitrogen 16, Creatinine 0.69, Estimat Glomerular Filtration Rate > 60, BUN/Creatinine Ratio 23, Glucose Level 89, Calcium Level 8.4L, Corrected Calcium 9.2, Total Bilirubin 0.2, Aspartate Amino Transf (AST/SGOT) 13, Alanine Aminotransferase (ALT/SGPT) 10, Alkaline Phosphatase 63, Total Protein 5.5L, Albumin 3.0L 09/19/19 11:28: Glucometer 103 Microbiology 09/17/19 Gram Stain - Final, Complete 09/17/19 Sputum Culture - Final, Complete Usual upper respiratory amanda Haemophilus influenza Assessment/Plan Assessment/Plan Assessment/Plan S/P SBR Anemia - most likely dilutional She was encouraged to ambulate, use IS and will continue clear liquid diet. Still normal post-operative course, will check labs, increase to soft diet and switch to oral PO pain meds and D/C morphine. Clinical Quality Measures DVT/VTE Risk/Contraindication: Risk Factor Score Per Nursin RFS Level Per Nursing on Admit: 4+=Very High MK AMADOR DO Sep 19, 2019 15:51
[2019-09-19] MEDS: HYDROcodone/APAP 7.5 MG/325 MG (LORTAB, LORCET PLUS) TABLET PO PRN (16:36)
[2019-09-19] MEDS: ENOXAPARIN 40 MG/0.4 ML (LOVENOX) SYR SC SCH (17:53)
[2019-09-20] MEDS: LACTATED RINGERS 1,000 ML IV SCH ×3 (00:25→11:21)
[2019-09-20] MEDS: HYDROcodone/APAP 7.5 MG/325 MG (LORTAB, LORCET PLUS) TABLET PO PRN ×3 (00:25→13:51)
[2019-09-20] MEDS: KETOROLAC 30 MG/ML VIAL IVP SCH ×3 (02:07→13:51)
[2019-09-20] MEDS: RT-ALBUTEROL INHALER HFA (VENTOLIN HFA) 18 GM IH SCH ×3 (02:32→15:38)
[2019-09-20 05:25] LABS: BASOPHILS % (AUTO) 0 % (0-10); EOSINOPHILS # (AUTO) 0.3 10^3/uL (0.0-0.3); EOSINOPHILS % (AUTO) 4 % (0-10); HEMATOCRIT 28 % (35-52); HEMOGLOBIN 9.1 G/DL (11.5-16.0); LYMPHOCYTES # (AUTO) 1.4 X 10^3 (1.0-4.0); LYMPHOCYTES % (AUTO) 18 % (12-44); MEAN CORPUSCULAR HEMOGLOBIN 30 PG (25-34); MEAN CORPUSCULAR HGB CONC 33 G/DL (32-36); MEAN CORPUSCULAR VOLUME 92 FL (80-99); MEAN PLATELET VOLUME 10.4 FL (7.4-10.4); MONOCYTES # (AUTO) 0.5 X 10^3 (0.0-1.0); MONOCYTES % (AUTO) 6 % (0-12); NEUTROPHILS # (AUTO) 5.8 X 10^3 (1.8-7.8); NEUTROPHILS % (AUTO) 73 % (42-75); PLATELET COUNT 231 10^3/uL (130-400); RED CELL DISTRIBUTION WIDTH 13.2 % (10.0-14.5)
[2019-09-20 05:40] LABS: ALBUMIN 2.8 GM/DL (3.2-4.5)
[2019-09-20 05:41] LABS: CHLORIDE 102 MMOL/L (98-107); POTASSIUM 4.2 MMOL/L (3.6-5.0); SODIUM 137 MMOL/L (135-145)
[2019-09-20 05:42] LABS: CALCIUM 8.2 MG/DL (8.5-10.1)
[2019-09-20 05:43] LABS: GLUCOSE 96 MG/DL (70-105); TOTAL PROTEIN 5.3 GM/DL (6.4-8.2)
[2019-09-20 05:44] LABS: CARBON DIOXIDE 26 MMOL/L (21-32)
[2019-09-20 05:45] LABS: BILIRUBIN,TOTAL 0.2 MG/DL (0.1-1.0)
[2019-09-20 05:46] LABS: ALKALINE PHOSPHATASE 62 U/L (40-136)
[2019-09-20 05:47] LABS: CREATININE SERUM 0.71 MG/DL (0.60-1.30); GFR ESTIMATED > 60
[2019-09-20 05:48] LABS: BUN/CREATININE RATIO 27
[2019-09-20 05:49] LABS: ALANINE AMINOTRANSFERASE 11 U/L (0-55)
[2019-09-20] MEDS: ACETAMINOPHEN 325 MG TABLET PO SCH ×2 (06:13→13:52)
--- NOTE | 2019-09-20 06:23 | Progress Note - Hospitalist ---
Subjective HPI/CC On Admission Date Seen by Provider: Sep 20, 2019 Time Seen by Provider: 10:00 This is a 68-year-old white female presented to the [place] emergency room with complaints of abdominal pain and not having had a bowel movement for the last week. The patient was accepted in transfer with a small bowel obstruction and an NG tube was placed. She arrived yesterday afternoon. The patient began having increasing abdominal discomfort unresponsive to fentanyl and was seen in consultation by Dr. Lindsey late afternoon yesterday. Her findings were concerning enough that he performed an exploratory laparotomy finding ischemic bowel and resected part of the small bowel. The patient this morning is still on a ventilator having been kept on it overnight in an abundance of caution since she had COPD. She is awake but somewhat somnolent. She follows commands and can planes primarily of an tenured abdominal pain. Blood gases are satisfactory and we will attempt weaning this morning. She does have a history of being oxygen dependent wearing 2 L especially in the evenings. Subjective/Events-last exam Hgb 9.1 Soft dietis tolerated Passing gas No bowels moving yet Maintain on O2 Discharge is planned soon Reviewed meds and labs Overallhas no new issues Review of Systems General: Fatigue, Malaise Neurological: Weakness Objective Exam Vital Signs Vital Signs Date Time Temp Pulse Resp B/P (MAP) Pulse Ox O2 Delivery O2 Flow Rate FiO2 09/20/19 17:00 37.2 91 20 127/56 90 Nasal Cannula 2.00 09/17/19 09:44 40 Capillary Refill : Less Than 3 SecondsLess Than 3 Seconds General Appearance: No Apparent Distress, WD/WN HEENT: PERRL/EOMI, TMs Normal, Normal ENT Inspection, Pharynx Normal, Moist Mucous Membranes Neck: Full Range of Motion, Normal Inspection, Non Tender, Supple, Carotid Bruit Respiratory: Chest Non Tender, Lungs Clear, Normal Breath Sounds, No Accessory Muscle Use, No Respiratory Distress Cardiovascular: Regular Rate, Rhythm, No Edema, No Gallop, No JVD, No Murmur, Normal Peripheral Pulses Gastrointestinal: Normal Bowel Sounds, No Organomegaly, No Pulsatile Mass, Non Tender, Soft Back: Normal Inspection, No CVA Tenderness, No Vertebral Tenderness Extremity: Normal Capillary Refill, Normal Inspection, Normal Range of Motion, Non Tender, No Calf Tenderness, No Pedal Edema Neurologic/Psychiatric: Alert, Oriented x3, No Motor/Sensory Deficits, Normal Mood/Affect Skin: Normal Color, Warm/Dry Lymphatic: No Adenopathy Results/Procedures Lab Laboratory Tests 09/20/19 04:55 Patient resulted labs reviewed. Imaging: Reviewed Imaging Report Assessment/Plan Assessment and Plan Assess & Plan/Chief Complaint Assessment: SBO required surgery Hypoxia HTN Night time Hypoxia Post Op Ileus Plan: IV fluids NPO Monitor labs Ambulate PT OT Maintain Oxygen Change dressing daily 09/20/19: Advance diet Wean O2 PT/OT DC soon once ok with surgery Clinical Quality Measures DVT/VTE Risk/Contraindication: Risk Factor Score Per Nursin RFS Level Per Nursing on Admit: 4+=Very High SRINIVASAN ORTIZ DO Sep 20, 2019 06:23
[2019-09-20 08:00] VITALS: BP 110/56
[2019-09-20] MEDS: PANTOPRAZOLE 40 MG (PROTONIX) VIAL IVP SCH (08:00)
[2019-09-20] MEDS: TIOTROPIUM BROMIDE (SPIRIVA) 5'S INHALER IH SCH (08:04)
[2019-09-20] MEDS: ADVAIR IH SCH (08:05)
--- NOTE | 2019-09-20 12:36 | NUR ---
IRF Evaluation Determination: Denied Explanation: It appears patient is ambulating (500ft, FWW), completing transfers and bed mobility with independence. ADLs: Independent with eating, LE dressing, and on/off footwear. SBA with toileting hygiene and shower/bathe. Set-up for UE dressing; therefore, it has been determined the patient does not require intensive therapies. Thank you for this referral.
[2019-09-20] MEDS ORDERED: HYDR-34 PO (12:39)
--- NOTE | 2019-09-20 12:41 | Discharge Inst-Surgical ---
Discharge Inst-Surgical Depart Medication/Instructions New, Converted or Re-Newed RX: RX Given to Pt/Family Patient Instructions Follow up Appt: Make appointment for 1 week. [phone] Instructions: No lifting greater than 20 pounds. No strenuous activity. May shower in 24 hours, no tub bath or soaking. Use incentive spirometer at home as directed. No Smoking Skin/Wound Care: May remove bandages in am. You need to leave the niko in place and come in to clinic to have them removed. Symptoms to Report: Appetite Changes, Extremity Discoloration, Numbness/Tingling, Swelling Increased, Bleeding Excessive, Eyesight Changes, Pain Increased, Urine Color Change, Constipation(Persistent), Fever over 101 degree F, Pain/Pressure in chest, Urinating Difficulty, Cough Up/Vomit Blood, Heart Beat Irreg/Pounding, Pain/Pressure in jaw, Cramps in feet or legs, Lightheadedness, Pain/Pressure in shoulder, Diarrhea(Persistent), Memory Changes Suddenly, Questions/Concerns, Weight gain consecutive days, Dizziness/Fainting, Nausea/Vomiting, Shortness of Breath, Weight gain over 2 pounds If questions or concerns contact your physician Or seek help at emergency department. Activity Activity as Tolerated: Yes Activity Instructions: Avoid Stress to Incision Driving Instructions: No Driving/Refer to Dr. Loredo Discharge Diet: No Restrictions, Low Residue Diet After 24 Hours: Clear Liquid if Nauseous If Any Problems/Questions/Issu: Contact Your Physician, Go to Emergency Room Skin/Wound Care Infection Signs and Symptoms: Increased Redness, Foul Odor of Wound, Increased Drainage, Skin Itchy or Has a Rash, Increased Swelling, Temperature Above 101 F Bathing Instructions: Shower Stitches/[place]/Dermabond Dis: Care of MK Haynes DO Sep 20, 2019 12:41
--- NOTE | 2019-09-20 12:43 | Progress Note - Surgery ---
Subjective Time Seen by a Provider: 12:09 Subjective/Events-last exam Pt seen and examined, feeling better and passing lots of gas. Still feels a little bloated and is comlaining about some swelling. Review of Systems Cardiovascular: Edema; No: Chest Pain Gastrointestinal: Abdominal Pain; No: Nausea, Vomiting Objective Exam Vital Signs Date Time Temp Pulse Resp B/P (MAP) Pulse Ox O2 Delivery O2 Flow Rate FiO2 09/20/19 08:07 96 Nasal Cannula 4.00 09/20/19 08:06 96 Nasal Cannula 4.00 09/20/19 08:05 96 Nasal Cannula 4.00 09/20/19 08:00 96 Nasal Cannula 4.00 09/20/19 08:00 36.8 101 20 110/56 (74) 92 Nasal Cannula 4.00 09/20/19 02:30 96 Nasal Cannula 4.00 09/19/19 23:50 37.4 97 22 147/80 (102) 96 Nasal Cannula 4.00 09/19/19 21:12 96 Nasal Cannula 4.00 09/19/19 21:09 96 Nasal Cannula 4.00 09/19/19 20:10 Nasal Cannula 4.00 09/19/19 19:29 37.0 90 20 132/78 (96) 95 Nasal Cannula 4.00 09/19/19 15:57 37.4 91 18 136/84 (101) 94 Nasal Cannula 4.00 09/19/19 14:56 95 Nasal Cannula 4.00 I & O 09/20/19 07:00 Intake Total 2770 ml Balance 2770 ml Capillary Refill : Less Than 3 SecondsLess Than 3 Seconds General Appearance: No Apparent Distress, Obese HEENT: Moist Mucous Membranes Respiratory: Chest Non Tender, Lungs Clear, Normal Breath Sounds, No Accessory Muscle Use, No Respiratory Distress Cardiovascular: Regular Rate, Rhythm, No Murmur Gastrointestinal: soft, tenderness (mostly at midline incision), other (incision is C/D/I ) Extremity: No Calf Tenderness, Pedal Edema (very minimal) Results Lab Laboratory Tests 09/19/19 18:14: Glucometer 113H 09/20/19 00:13: Glucometer 103 09/20/19 04:55: White Blood Count 8.0, Red Blood Count 3.05L, Hemoglobin 9.1L, Hematocrit 28L, Mean Corpuscular Volume 92, Mean Corpuscular Hemoglobin 30, Mean Corpuscular Hemoglobin Concent 33, Red Cell Distribution Width 13.2, Platelet Count 231, Mean Platelet Volume 10.4, Neutrophils (%) (Auto) 73, Lymphocytes (%) (Auto) 18, Monocytes (%) (Auto) 6, Eosinophils (%) (Auto) 4, Basophils (%) (Auto) 0, Neutrophils # (Auto) 5.8, Lymphocytes # (Auto) 1.4, Monocytes # (Auto) 0.5, Eosinophils # (Auto) 0.3, Basophils # (Auto) 0.0, Sodium Level 137, Potassium Level 4.2, Chloride Level 102, Carbon Dioxide Level 26, Anion Gap 9, Blood Urea Nitrogen 19H, Creatinine 0.71, Estimat Glomerular Filtration Rate > 60, BUN/Creatinine Ratio 27, Glucose Level 96, Calcium Level 8.2L, Corrected Calcium 9.2, Total Bilirubin 0.2, Aspartate Amino Transf (AST/SGOT) 15, Alanine Aminotransferase (ALT/SGPT) 11, Alkaline Phosphatase 62, Total Protein 5.3L, Albumin 2.8L Microbiology 09/17/19 Gram Stain - Final, Complete 09/17/19 Sputum Culture - Final, Complete Usual upper respiratory amanda Haemophilus influenza Assessment/Plan Assessment/Plan Assessment/Plan S/P SBR Anemia - most likely dilutional D/C IV and D/C home Clinical Quality Measures DVT/VTE Risk/Contraindication: Risk Factor Score Per Nursin RFS Level Per Nursing on Admit: 4+=Very High MK AMDAOR DO Sep 20, 2019 12:43
[2019-09-20 16:24] VITALS: BP 127/56
[2019-09-20] MEDS ORDERED: HYDR-3817 PO (16:33)
--- NOTE | 2019-09-20 16:35 | Discharge Summary ---
Discharge Summary Hospital Course Was the Problem List Reviewed?: Yes Problems/Dx: (1) Small bowel obstruction Hospital Course Date of Admission: Sep 16, 2019 at 13:08 Admission Diagnosis : Family Physician/Provider: Emil Lange MD Date of Discharge: 09/20/19 Discharge Diagnosis: SBO, ischemic bowel, s/p partial small bowel resection Hospital Course: Patient had a lengthy hospital course after she presented with abdominal pain which ultimately required surgery and dx of ischemic small bowel and post op ileus resolved with time and supportive care and O2 maintained as she uses at home and was able to participate with PT OT and ultimately was DC home in stable and improved condition Labs and Pending Lab Test: Laboratory Tests 09/19/19 18:14: Glucometer 113H 09/20/19 00:13: Glucometer 103 09/20/19 04:55: White Blood Count 8.0, Red Blood Count 3.05L, Hemoglobin 9.1L, Hematocrit 28L, Mean Corpuscular Volume 92, Mean Corpuscular Hemoglobin 30, Mean Corpuscular Hemoglobin Concent 33, Red Cell Distribution Width 13.2, Platelet Count 231, Mean Platelet Volume 10.4, Neutrophils (%) (Auto) 73, Lymphocytes (%) (Auto) 18, Monocytes (%) (Auto) 6, Eosinophils (%) (Auto) 4, Basophils (%) (Auto) 0, Neutrophils # (Auto) 5.8, Lymphocytes # (Auto) 1.4, Monocytes # (Auto) 0.5, Eosinophils # (Auto) 0.3, Basophils # (Auto) 0.0, Sodium Level 137, Potassium Level 4.2, Chloride Level 102, Carbon Dioxide Level 26, Anion Gap 9, Blood Urea Nitrogen 19H, Creatinine 0.71, Estimat Glomerular Filtration Rate > 60, BUN/Creatinine Ratio 27, Glucose Level 96, Calcium Level 8.2L, Corrected Calcium 9.2, Total Bilirubin 0.2, Aspartate Amino Transf (AST/SGOT) 15, Alanine Aminotransferase (ALT/SGPT) 11, Alkaline Phosphatase 62, Total Protein 5.3L, Albumin 2.8L Microbiology 09/17/19 Gram Stain - Final, Complete 09/17/19 Sputum Culture - Final, Complete Usual upper respiratory amanda Haemophilus influenza Home Meds Active Reported Coq10 (Ubidecarenone) 50 Mg Tab.chew 50 Mg PO DAILY Spiriva (Tiotropium [place]) 1 Inh Aerp 1 Cap IN DAILY Albuterol Sulfate 2.5 Mg/3 Ml Vial.neb 3 Ml NEB Q6H PRN Losartan-Hctz 100-12.5 mg Tab (Losartan/Hydrochlorothiazide) 1 Each Tablet 1 Ea PO DAILY Pravastatin Sodium 20 Mg Tablet 20 Mg PO DAILY Proair Hfa (Albuterol Sulfate) 1 Puff Puff 2 Puff PO Q6H PRN Advair 500-50 Diskus (Fluticasone/Salmeterol) 1 Each Blst.w.dev 1 Puff PO BID Ativan (Lorazepam) 0.5 Mg Tablet 0.5 Mg PO TID PRN Assessment/Pt Instructions [facility] [address] Lindsey in 1 week Discharge Planning: <30 minutes discharge planning Discharge Instructions Discharge Diet: No Restrictions, Low Residue Activity as Tolerated: Yes Discharge Physical Examination Vital Signs Vital Signs Date Time Temp Pulse Resp B/P (MAP) Pulse Ox O2 Delivery O2 Flow Rate FiO2 09/20/19 16:24 37.2 91 20 127/56 (79) 90 Nasal Cannula 4.00 09/17/19 09:44 40 General Appearance: No Apparent Distress, WD/WN, Chronically ill Respiratory: Lungs Clear Cardiovascular: Regular Rate, Rhythm Neurologic/Psychiatric: Alert, Oriented x3, No Motor/Sensory Deficits, Normal Mood/Affect Allergies: Coded Allergies: No Known Drug Allergies (Unverified , 09/16/19) Discharge Summary Date of Admission Sep 16, 2019 at 13:08 Date of Discharge Discharge Date: Sep 20, 2019 Admission Diagnosis Small bowel obstruction Ischemic bowel status post resection COPD-s/p ventilator support overnight- will begin weaning and extubate as possible Incidental thyroid nodule requiring follow-up on CT Discharge Diagnosis Assessment: SBO required surgery Hypoxia HTN Night time Hypoxia Post Op Ileus Plan: IV fluids NPO Monitor labs Ambulate PT OT Maintain Oxygen Change dressing daily 09/20/19: Advance diet Wean O2 PT/OT DC soon once ok with surgery Clinical Quality Measures DVT/VTE Risk/Contraindication: Risk Factor Score Per Nursin RFS Level Per Nursing on Admit: 4+=Very High SRINIVASAN ORTIZ DO Sep 20, 2019 16:35
[2019-09-20 17:00] VITALS: BP 127/56
[2019-09-20] MEDS: ADVAIR HFA 115/21 MCG INHALER 8 GM IH SCH (17:26)
== END 2019-09-20 17:15 | disposition home or self-care (01) | DRG 330 ==
LOC: EDUNIT# 07:08 → ER FS 07:12 → 4TH 13:08 → ICU 09-17 00:01 → 4TH 09-17 14:38
PROVIDERS: ADMIT Family Medicine; ATTEND Family Medicine
PROC: 5A1935Z Respiratory Ventilation, Less than 24 Consecutive Hours (ICD-10-PCS; 2019-09-16)
PROC: 0DB80ZZ Excision of Small Intestine, Open Approach (ICD-10-PCS; principal; 2019-09-16 22:46)
DX: K56.690 Other partial intestinal obstruction (principal); K55.9 Vascular disorder of intestine, unspecified; E87.1 Hypo-osmolality and hyponatremia; J44.9 Chronic obstructive pulmonary disease, unspecified; I10 Essential (primary) hypertension; E87.8 Other disorders of electrolyte and fluid balance, not elsewhere classified; K59.00 Constipation, unspecified; E04.1 Nontoxic single thyroid nodule; Z20.828 Contact with and (suspected) exposure to other viral communicable diseases; Z99.81 Dependence on supplemental oxygen; Z87.891 Personal history of nicotine dependence; R06.89 Other abnormalities of breathing; D64.9 Anemia, unspecified; K56.7 Ileus, unspecified
CPT/HCPCS: 36415; 36600; 71045; 71046; 71275; 74177; 80053; 81000; 82805; 82962; 83690; 83735; 84100; 84443; 84484; 85025; 85027; 85379; 86850; 86900; 86901; 87070; 87077; 87081; 87185; 87205; 87635; 93005; 93041; 94002; 94640; 94664; 94760; 94799

== ENCOUNTER → 2020-09-17 | Outpatient (CLI) | payer BC, MEDICARE ==
[~2020-09-17] MED LIST changes: +ALBU2.5V4 NEB; +ASPI-1238 PO; -CATHETER FLUSH 10 ML SYR IV PRN; +FLUT1DIS27 PO; -HOLD METFORMIN - RECEIVED CONTRAST 20 ML VIAL IV SCH; +HYDR-34 PO; +HYDR-3817 PO; -IOHEXOL 350 MG/ML 150 ML (OMNIPAQUE 350) VIAL IV ONE; +LORA-404 PO; +LOSA1TAB26 PO; -NS 50 ML (IVPB) BAG IV ONE; +PRAV20TA3 PO; +RT-ALBUINH PO; +TIOT18CA2 IN; +UBID50TA3 PO
--- NOTE | 2020-09-17 10:03 | Diagnostic Imaging Report ---
EXAMINATION: CT chest without contrast (lung screening). TECHNIQUE: Multiple contiguous axial images were obtained through the chest without the use of intravenous contrast according to lung cancer screening protocol. All CT scans use one or more of the following dose optimizing techniques: automated exposure control, MA and/or KvP adjustment based on patient size and exam type or iterative reconstruction. HISTORY: 35 pack year history of smoking. COMPARISON: 09/16/2019 FINDINGS: There is no edema or pneumonia. No pleural effusion. No pneumothorax. There is bilateral lower lobe predominant bronchiectasis. There is mild atelectasis in the bases. Lungs are moderately emphysematous. There are a few areas of mucus plugging. There is no axillary or supraclavicular lymphadenopathy. There is no mediastinal lymphadenopathy. There is an unchanged thyroid nodule extending into the upper mediastinum. Heart size is normal. There are no coronary artery calcifications. No pericardial effusion. Aorta is normal in caliber. Limited views of the upper abdomen show small cyst in left kidney. There are no suspicious osseus lesions. IMPRESSION: 1. No suspicious pulmonary nodules. 2. Lower lobe predominant bronchiectasis and mucous plugging likely related to recurrent aspiration although hypogammaglobulinemia can present in this pattern as well. LUNG-RADS CATEGORY: 1 MODIFIER: None. Dictated by: Dictated on workstation # [id number]
== END ==
LOC: RAD 09:45
PROVIDERS: ATTEND Family Medicine
DX: J47.9 Bronchiectasis, uncomplicated (principal); Z87.891 Personal history of nicotine dependence
CPT/HCPCS: 71271

== ENCOUNTER 2020-11-05 05:39 | Outpatient (CLI) | payer BC ==
[~2020-11-05] VITALS: Ht 162.6 cm; Wt 69.9 kg
== END 2020-11-06 08:18 | disposition home or self-care (01) ==
LOC: PREOP 05:39
PROVIDERS: ATTEND Surgery
DX: Z01.818 Encounter for other preprocedural examination (principal)

== ENCOUNTER 2020-11-12 06:56 | Day surgery (SDC) | payer BC ==
[~2020-11-12] VITALS: Ht 162.6 cm; Wt 69.9 kg
[2020-11-12] MEDS ORDERED: LACTATED RINGERS 1,000 ML IV STA (07:00)
[2020-11-12] MEDS ORDERED: LACTATED RINGERS 1,000 ML IV ONE (07:18)
[2020-11-12 07:31] VITALS: BP 139/68
[2020-11-12] MEDS ORDERED: PROPOFOL INJECTION 50 ML IV ONE (07:45)
--- NOTE | 2020-11-12 08:22 | Progress Note-Pre Operative ---
Pre-Operative Progress Note H&P Reviewed The H&P was reviewed, patient examined and no changes noted. Time Seen by Provider: 08:15 Date H&P Reviewed: Nov 12, 2020 Time H&P Reviewed: 08:15 Pre-Operative Diagnosis: screening colonoscopy MK AMADOR DO Nov 12, 2020 08:22
[2020-11-12 08:50] VITALS: BP 125/67
[2020-11-12 08:54] VITALS: BP 134/68
--- NOTE | 2020-11-12 08:54 | Progress Note-Post Operative ---
Post-Operative Progess Note Surgeon (s)/Loss Prevention Agent (s) Surgeon MK AMADOR DO Loss Prevention Agent: ANU Wright Pre-Operative Diagnosis screening colonoscopy Post-Operative Diagnosis diverticulosis int hemorrhoids Procedure & Operative Findings Date of Procedure 11/12/20 Procedure Performed/Findings Colonoscopy PROCEDURE NOTE: After informed consent was obtained, the patient was brought to the endoscopy suite, placed in bed in left lateral decubitus position. She was administered IV sedation by the SKIP MINER who then monitored her vitals the entire time, heart rate, blood pressure and pulse ox and the scope was inserted, pushed in and on the way in noted diverticula and took a picture. Pushed in to about 100 cm; into the cecum, took a picture of appendiceal orifice and then slowly withdrew the scope insufflating to look circumferentiallly at the vasquez starting in the cecum, up the ascending colon to the hepatic flexure, then down the transverse colon to the splenic flexure, into the descending colon. Finally down the sigmoid and into the rectal vault and retroflexed the scope. Took a picture of the internal hemorrhoids. The patient tolerated the procedure. She was recovered in endoscopy suite. Anesthesia Type IV sedation by SKIP MINER Estimated Blood Loss Estimated blood loss (mL): none Specimens/Packing Specimens Removed none MK AMADOR DO Nov 12, 2020 08:54
[2020-11-12 08:55] VITALS: BP 130/72
--- NOTE | 2020-11-12 08:55 | Endoscopy Discharge Instruct ---
Endo Procedure/Findings Findings 1.: Diverticulosis 2.: Internal Hemorrhoids Discharge Instructions - Activity: You might feel a little sleepy until tomorrow. This is due to the medicine you received to relax you. Until tomorrow, you should: NOT drive a car, operate machinery or power tools. NOT drink any alcoholic beverages. NOT make any important decisions or sign importortant papers. Do not return to work until tomorrow, unless otherwise instructed. Resume previous activities tomorrow. Diet: Start by taking liquids. If you tolerate liquids, advance to solid food. 1.: Colonscopy in 10 years Notify Physician - If you experience excessive bleeding, unusual abdominal pain, fever, or chest pain, contact your doctor immediately. MK AMADOR DO Nov 12, 2020 08:55
[2020-11-12 09:20] VITALS: BP 131/72
[2020-11-12 09:25] VITALS: BP 131/72
--- NOTE | 2020-11-12 10:29 | Anesthesia-General Post-Op ---
MAC Patient Condition Mental Status/LOC: Same as Preop Cardiovascular: Satisfactory Nausea/Vomiting: Absent Respiratory: Satisfactory Pain: Controlled Complications: Absent Post Op Complications Complications None Follow Up Care/Instructions Patient Instructions None needed. Anesthesiology Discharge Order Discharge Order Patient is doing well, no complaints, stable vital signs, no apparent adverse anesthesia problems. No complications reported per nursing. SONAM HELLER CRNA Nov 12, 2020 10:29
== END 2020-11-12 09:25 | disposition home or self-care (01) ==
LOC: ENDO 06:56
PROVIDERS: ATTEND Surgery
DX: Z12.11 Encounter for screening for malignant neoplasm of colon (principal); K57.90 Diverticulosis of intestine, part unspecified, without perforation or abscess without bleeding; K64.8 Other hemorrhoids; J44.9 Chronic obstructive pulmonary disease, unspecified; I10 Essential (primary) hypertension; E78.5 Hyperlipidemia, unspecified; Z99.81 Dependence on supplemental oxygen; Z79.899 Other long term (current) drug therapy; Z87.891 Personal history of nicotine dependence